=== PATIENT | male | born 1935 | race Caucasian/White ===

== ENCOUNTER 2016-11-11 13:40 | Inpatient (IN) | payer MEDICARE, MEDICAID ==
[~2016-11-11 13:40] MED LIST: Heparin 1,000 UNITS/ML VIAL ONE
[2016-11-11 14:00] LABS: Oxyhemoglobin 95.5 % (94.0-97.0); Sodium 142 mmol/L (135-148)
[2016-11-11 14:01] LABS: Mode NC 2 LPM; Modified Allen's Test POSITIVE; Vent NO
[2016-11-11] MEDS ORDERED: ISOVUE-370 76%-LOCM 1 ML ONE (14:13)
[2016-11-11 14:18] LABS: #Eosinphils 0.1 thou/uL (0.0-0.7); #Lymphocytes 1.7 thou/uL (1.20-3.40); #Monocytes 0.4 thou/uL (0.11-0.59); #Neutrophils 7.2 thou/uL (1.40-6.50); %Basophils 0.3 % (0.0-1.0); %Eosinophils 1.3 % (0.0-10.0); %Lymphocytes 18.3 % (21.0-51.0); %Monocytes 4.2 % (0.0-10.0); Hematocrit 36.8 % (42.0-52.0); Mean Platelet Volume 7.9 fL (7.4-10.4); Red Blood Cell (RBC) Count 3.39 mill/uL (4.70-6.10); White Blood Cell (WBC) Count 9.4 thou/uL (4.8-10.8)
[2016-11-11] MEDS ORDERED: Meropenem 1 GM VIAL ONE (14:27)
[2016-11-11] MEDS ORDERED: Sodium Chloride 0.9% 100 ML ONE (14:27)
[2016-11-11 14:30] LABS: Prothrombin Time 14.9 SEC (12.0-14.7)
[2016-11-11 14:42] LABS: Lactic Acid - Sepsis 1.4 mmol/L (0.5-2.2)
--- NOTE | 2016-11-11 14:53 | RAD ---
SINGLE VIEW OF THE CHEST: Comparison: 11-01-16 History: Shortness of breath, dyspnea. FINDINGS: Single view of the chest shows a normal sized cardiomediastinal silhouette. There is no evidence of consolidation, mass, or pleural effusion. Degenerative changes are seen in the spine. IMPRESSION: No evidence of acute cardiopulmonary disease. POS: [facility]
[2016-11-11 14:59] LABS: ALT (SGPT) Less than 7 U/L (8-55); AST (SGOT) 18 U/L (5-34); Alkaline Phosphatase 85 U/L (40-150); Anion Gap 17 mmol/L (10-20); BUN (Urea Nitrogen) 24 mg/dL (8.4-25.7); Bilirubin, Total 0.9 mg/dL (0.2-1.2); CK (CPK) 65 U/L (30-200); Calc. Creatinine Clearance 0 mL/min (70-130); Calcium 9.1 mg/dL (7.8-10.44); Carbon Dioxide 24 mmol/L (23-31); Chloride 106 mmol/L (98-107); Estimated GFR-MDRD 65; Lipase 8 U/L (8-78); Protein, Total 6.7 g/dL (5.8-8.1)
[2016-11-11 15:14] LABS: Bilirubin Negative (Negative); Blood, Urine Negative (Negative); Glucose, Urine (Dipstick) Negative (Negative); Ketone, Urine Trace mg/dL (Negative); Nitrite Negative (Negative); Protein, Urine (Dipstick) 30 mg/dL (Neg-Trace)
[2016-11-11 15:18] LABS: Bacteria/HPF None Seen HPF (None Seen); Hyaline Casts/LPF 0-3 HYALINE CAST LPF (0-3 Hyaline); RBC/HPF 0-3 HPF (0-3); Squamous Epithelial None Seen HPF (0-3); WBC/HPF 0-3 HPF (0-3)
[2016-11-11] MEDS ORDERED: Furosemide 40 MG/4 ML VIAL ONE (16:31)
--- NOTE | 2016-11-11 16:58 | CT ---
CTA OF THE CHEST WITH CONTRAST: 11/11/16 COMPARISON: None. HISTORY: Shortness of breath. History of dementia. TECHNIQUE: Multiple contiguous axial images are obtained in a CTA of the chest with contrast per pulmonary embo lism protocol. 3D oblique MIP reformats and direct coronal reformats were performed. FINDINGS: Pulmonary arteries are well opacified without filling defects to suggest pulmonary emboli. The heart is normal in size without focal cardiac abnormality. Calcifications are seen in the coronary arteri es and aorta. No hilar or mediastinal lymphadenopathy are seen. There is a small right pleural effusion. No significant left pleural effusion seen. No focal infiltr ates are seen in the lungs. No suspicious pulmonary mass is present. The visualized subdiaphragmatic structures are unremarkable. Degenerative changes are seen in the sp ine. The chest wall soft tissues are unremarkable. IMPRESSION: 1. Small right pleural effusion. 2. No evidence of pulmonary thromboembolism. POS: [facility]
[2016-11-11 17:54] LABS: Troponin I 0.062 ng/mL (< 0.028)
[2016-11-11 19:58] VITALS: BMI 31.7
[2016-11-11 20:29] LABS: Troponin I 0.073 ng/mL (< 0.028)
[2016-11-11] MEDS: Piperacillin/Tazobactam 3.375 GM in Sodium Chloride 0.9% 100 ML IVPB SCH (21:06)
[2016-11-12] MEDS: Piperacillin/Tazobactam 3.375 GM in Sodium Chloride 0.9% 100 ML IVPB SCH ×4 (03:02→14:54)
[2016-11-12] MEDS: Vancomycin HCl 1 GM in Premix Bag 1 BAG IVPB SCH ×2 (03:45→14:54)
[2016-11-12 06:26] LABS: Anion Gap 13 mmol/L (10-20); BUN (Urea Nitrogen) 22 mg/dL (8.4-25.7); Calc. Creatinine Clearance 61 mL/min (70-130); Calcium 9.1 mg/dL (7.8-10.44); Carbon Dioxide 29 mmol/L (23-31); Chloride 103 mmol/L (98-107); Estimated GFR-MDRD 53
--- NOTE | 2016-11-12 07:18 | ULT ---
RIGHT LOWER EXTREMITY VENOUS DOPPLER WITH SPECTRAL ANALYSIS AND COLOR FLOW EVALUATION: Date: 11/11/16 HISTORY: Right lower extremity pain, edema, and redness. FINDINGS/IMPRESSION: Newell scale, color flow, Doppler evaluation, and spectral analysis of the right lower extremity venou s structures is performed with 2D imaging. The right lower extremity common femoral, superficial fem oral, popliteal, posterior tibial, most proximal greater saphenous, and profunda femoral veins are i [place]. There is normal lumen compressibility, flow, and augmentation of the visualized deep venous structur es of the right lower extremity. There is evidence of subcutaneous edema in the right lower extremity. IMPRESSION: 1. No evidence of a DVT in the visualized deep venous structures of the right lower extremity. 2. Subcutaneous edema right lower extremity. POS: [facility]
[2016-11-12] MEDS: Enoxaparin Sodium 40 MG/0.4 ML SYRINGE SC SCH (08:31)
[2016-11-12] MEDS: Furosemide 40 MG/4 ML VIAL SLOW IVP SCH (08:31)
[2016-11-12] MEDS ORDERED: Carvedilol 6.25 MG TAB PO SCH (10:30)
[2016-11-12] MEDS ORDERED: Insulin Detemir 100 UNITS/ML 30 UNITS in Pre-Filled Syringe 1 EACH SC SCH (10:30)
[2016-11-12] MEDS ORDERED: Lisinopril 20 MG TAB PO SCH (10:30)
[2016-11-12] MEDS ORDERED: Gabapentin 300 MG CAP PO SCH (10:30)
--- NOTE | 2016-11-12 11:17 | CON ---
DATE OF CONSULTATION: 11/12/2016 INDICATION FOR CONSULTATION: An 81-year-old patient with shortness of breath and edema. HISTORY OF PRESENT ILLNESS: This 81-year-old patient with dementia had been complaining of lower ex tremity edema, some mild chest discomfort, and shortness of breath. He presented to the emergency r oom. He refused to have an IV placed by the EMS en route. He was found to have, in the emergency r oom, some lower extremity edema with cellulitis, was started on antibiotics, some concern that he ma y have non-ST segment elevation myocardial infarction, cardiac enzymes were indeterminate. He has h ad elevated cardiac enzymes in the past. He does have a history of atrial fibrillation, but at this time appears to be in a junctional rhythm. He had an echocardiogram in 09/2016, which showed a mil d decrease in left ventricular systolic function. He was seen in the hospital at that time by Dr. Kenisha ruiz. It was felt that no further intervention was indicated due to his history of dementia and the patient was stable at that time. At this time, he denies any chest pain or shortness of breath , but does complain of some discomfort in the lower extremities. PAST MEDICAL HISTORY: Significant for dementia, congestive heart failure, history of coronary arter y disease, myocardial infarction with [id number] myocardial infarction. He has had stent plac ement x2, I am uncertain as to which vessels. He has history of diabetes and hypertension. He has had a right knee surgery. He has shoulder surgery x2. He has some history of venous insufficiency. SOCIAL HISTORY: He has no alcohol or tobacco abuse. He has a child, at least one daughter, who is alive and well. He is . FAMILY HISTORY: Noncontributory. MEDICATIONS PRIOR TO ADMISSION: Included lisinopril, Hytrin, gabapentin, omeprazole, Lasix, allopur inol, aspirin, DuoNeb, Coreg, insulin, and Lipitor; in the hospital he has been given Lovenox, IV La six, insulin, Protonix, piperacillin, and vancomycin. ALLERGIES: He is allergic to SULFA. LABORATORY DATA: Shows a white blood cell count of 9.4, hemoglobin 11.7, creatinine 1.3, troponin I on admission was 0.05, the next set was 0.62, and then up to 0.73, MBs are negative. REVIEW OF SYSTEMS: The patient is somewhat demented, but denies chest pain or shortness of breath a t this time. He does complain of some edema and some swelling in the lower extremities with some te nderness. He denied any GI or complaints. Remainder of the 12-point review of systems from what I can ascertain from the patient was unremarkable. PHYSICAL EXAMINATION: GENERAL: Reveals an elderly gentleman. VITAL SIGNS: Blood pressure 147/72, heart rate is 67 and is regular, temperature 99.7, respiratory rate is 18, O2 saturations at 96%. HEENT: Shows the head to be normocephalic and atraumatic. Carotid pulses are present. I cannot he ar any bruits. There is no obvious JVD. CHEST: His chest is actually clear to auscultation. I did not hear rales, rhonchi, or wheezing. CARDIOVASCULAR: Exam reveals a regular rhythm. There are no significant murmurs, heaves, thrills, bruits, or rubs. ABDOMEN: Obese, shows positive bowel sounds. No organomegaly or masses are noted. Femoral pulses are present. EXTREMITIES: Showed 2-3+ lower extremity edema. He has cellulitis of the right lower extremity. H e has tenderness on both lower extremities. I cannot palpate pedal pulses due the tenderness of the lower extremities and feet. NEUROLOGIC: The patient has obvious dementia, but is pleasant at this time and is calm. I did not see any gross focal motor deficits noted. SKIN: Warm and dry. Lower extremities are warm to the touch, more so than the remaining systems. IMAGING: EKG shows a junctional rhythm with a right bundle branch block and left anterior fascicula r block. He did have a CT angiogram, which shows a small right pleural effusion, but no pulmonary e mboli were noted. Chest x-ray showed no acute changes. IMPRESSION: 1. Elderly gentleman with lower extremity edema and cellulitis, which is being treated by antibioti cs. 2. Abnormal cardiac enzymes, which may be due to multitude of reasons, but at this time given his o verall dimension in present situation with cellulitis, he is not a candidate to undergo further inte rvention or evaluation from a cardiac standpoint as far as coronary arteriography and stress testing is not indicated at this time. 3. Some evidence of lower extremity edema, which is also probably some mild component of congestive heart failure. He may have diastolic dysfunction. However, his last echocardiogram in 09/2016 did show a minimal decrease in left ventricular systolic function. I would agree with the IV diuretics on a daily basis at this time. 4. Dementia. This is being dealt with by the primary care service. 5. History of hypertension. This is under reasonable control at this time. 6. History of coronary artery disease. This may need further evaluation, but at this time there is no indication we need to proceed with cardiac catheterization or stress testing. 7. Diabetes. This will be dealt with by the primary care service and he will continue his medicati ons. Thank you very much for asking us to participate in the care of the patient. Dr. Carvajal will res ume his care tomorrow.
[2016-11-12] MEDS: HumaLOG 300 UNITS/3 ML VIAL SC SCH ×2 (13:45→17:26)
[2016-11-12] MEDS: cefTRIAXone\\ROCEPHIN 1 GM in Sodium Chloride 0.9% 100 ML IVPB SCH (14:53)
--- NOTE | 2016-11-12 14:53 | CON ---
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 No reported chest pain, maybe so me dyspnea. No nausea, vomiting, hematemesis, melena or hematochezia. No genitourinary symptoms. Initial findings in the exam showed temperature of 98, pulse 58, respirations 20 and blood pressure 116/40. Pertinent findings included diminished breath sounds at the bases, but no crackles or wheez ing. Heart exam was normal. Abdomen was soft, nontender, not distended and he had edema with eryth maru in the lower extremities. White cell count 7.3, hemoglobin 12 and platelets 139. Potassium 5.2 . Initial evaluation included a non-ST segment elevation DE with acute kidney injury, volume deplet ion, AFib and also there was evidence of cellulitis in the lower extremities. We were asked to eval uate the issue of cellulitis. Currently, Mr. Saunders is somewhat disoriented. He knows where he is. He knew his name, but could not tell me his age or the year or month. He complains of pain particul ar in the right lower extremity on palpation, mild dyspnea. Other 10-point review of systems is as above. PAST MEDICAL HISTORY: Includes type 2 diabetes, hypertension, hyperlipidemia, coronary artery disea se with prior DE with stenting and venous insufficiency with stasis dermatitis. ALLERGIES: SULFA DRUGS with rash. PAST SURGICAL HISTORY: Right knee arthroplasty, left shoulder arthroscopy and coronary intervention s. FAMILY HISTORY: Noncontributory. CURRENT MEDICATIONS: Include aspirin, Coreg, Lovenox, Lasix, Neurontin, insulin, Zestril, Protonix, vancomycin and Zosyn. PHYSICAL EXAMINATION: VITAL SIGNS: T-max 99.7, BP 140/70, pulse 67, respirations 18 and O2 sat 96% on 2 liters. SKIN: Examination shows the area of circumferential erythema more extensive on the right leg, a lit tle bit of that on the left side. The area of involvement includes the distal right leg in a circum ferential fashion, mostly in the anterior segment. This area is quite tender to palpation. No tracy chiae or purpura. The patient has lost all his peripheral IV access. No Montero catheter. No lympha denopathy. Mild periorbital edema. HEENT: Ocular movements are conjugate. Sclerae white. Oral cavity with numerous missing teeth, pa rticularly in the upper maxilla. Oral cavity is moist, otherwise no lesions. NECK: Supple, without jugular venous distention. LUNGS: With symmetric clear breath sounds. CARDIOVASCULAR: S1 and S2 with markedly diminished heart sounds. ABDOMEN: Soft and not distended. Question of bladder distention. EXTREMITIES: No joint inflammatory activity. Pulses are 1+ in dorsalis pedis. There is evidence o f venous insufficiency associated edema. He is able to move extremities on command, but is diffusel y weak. NEUROLOGIC: Plantar responses are flexor. No clonus. He knows his name. He establishes eye conta ct and follows commands, but he did not know the date. LABORATORY AND X-RAY FINDINGS: White cell count was 9.4, hemoglobin 11, MCV 109, platelets 168,000 and 75% neutrophils. INR 1.2. PH of 7.4, pCO2 of 45 and pO2 of 99. Sodium was 142, creatinine 1.0 9 with AST 18, ALT less than 7 and alkaline phosphatase 85. BNP was 319 and albumin 3.7. Urinalysi s with 30 protein. Microbiology: Blood cultures negative from this admission, urine culture negati ve. Imaging studies have negative duplex ultrasound of veins. CT angio with no evidence of pulmona ry embolism, small right pleural effusion. ASSESSMENT: Diabetes type 2, cardiomyopathy ischemic, non-ST segment elevation myocardial infarctio n and possible cellulitis right leg. DISCUSSION: At this time, we would recommend transition to Rocephin, PICC line placement since he h as lost all the IV access. Nurse is having a difficult time finding another peripheral IV access. Check bladder scan to rule out urinary retention. Whenever there is further improvement, transition to oral Keflex for discharge planning. Patient will benefit from compression stockings if he is ab le to tolerate them. In view of the recurrence of cellulitis, we would recommend suppressive Pen VK 250 mg twice daily for one year.
[2016-11-12] MEDS: Gabapentin 300 MG CAP PO SCH ×2 (14:55→21:46)
[2016-11-12] MEDS: Carvedilol 6.25 MG TAB PO SCH (21:45)
[2016-11-12] MEDS: Atorvastatin Calcium 20 MG TAB PO SCH (21:45)
[2016-11-12] MEDS: Terazosin HCl 5 MG CAP PO SCH (21:46)
[2016-11-13 02:26] LABS: Vancomycin, Trough 9.6 ug/mL
[2016-11-13 06:18] LABS: Anion Gap 13 mmol/L (10-20); BUN (Urea Nitrogen) 21 mg/dL (8.4-25.7); Calc. Creatinine Clearance 61 mL/min (70-130); Calcium 8.7 mg/dL (7.8-10.44); Carbon Dioxide 30 mmol/L (23-31); Chloride 101 mmol/L (98-107); Estimated GFR-MDRD 53
[2016-11-13] MEDS: HumaLOG 300 UNITS/3 ML VIAL SC SCH ×3 (08:04→16:49)
[2016-11-13] MEDS: Carvedilol 6.25 MG TAB PO SCH ×2 (09:38→20:51)
[2016-11-13] MEDS: Furosemide 40 MG/4 ML VIAL SLOW IVP SCH (09:41)
[2016-11-13] MEDS: Enoxaparin Sodium 40 MG/0.4 ML SYRINGE SC SCH (09:41)
[2016-11-13] MEDS: Insulin Detemir 100 UNITS/ML 30 UNITS in Pre-Filled Syringe 1 EACH SC SCH (09:42)
[2016-11-13] MEDS: Gabapentin 300 MG CAP PO SCH ×3 (09:42→20:51)
[2016-11-13] MEDS: Lisinopril 20 MG TAB PO SCH (09:42)
[2016-11-13] MEDS ORDERED: Sodium Chloride 0.9% 10 ML ONE (13:53)
[2016-11-13] MEDS: cefTRIAXone\\ROCEPHIN 1 GM in Sodium Chloride 0.9% 100 ML IVPB SCH (13:55)
--- NOTE | 2016-11-13 14:20 | SPC ---
PICC PLACEMENT ULTRASOUND GUIDED VENOUS ACCESS: (Peripherally Inserted Central Catheter) HISTORY: 81-year-old male with cellulitis of the right lower extremity requiring long-term IV antibiotics. TECHNIQUE: Catheter caliber: 5 Grenadian Catheter trim length: 47.5 cm Catheter lumen number: Single Catheter tip location: Right atrium Vein accessed: Left basilic Signed, informed consent was obtained. A tourniquet was applied at the proximal aspect of the arm. The arm was prepared and draped in the usual sterile fashion. A 25 gauge needle was used to apply buffered lidocaine superficially. The vein was punctured with a 21 gauge micropuncture needle under ultrasound guidance. A 0.018 inch guide wire was advanced through the micropuncture needle and int o the vein. Under fluoroscopic guidance, the guide wire was advanced to the right atrium. The PICC (peripherally inserted central catheter) was flushed and trimmed to the appropriate length. The sk in puncture hole was widened with a blade. The micropuncture needle was exchanged over the guide wi re for a 5 Grenadian peel-away dilator sheath. The dilator was exchanged over the guide wire for the P ICC, which was then further advanced under fluoroscopy. The sheath and guide wire were removed. Th e PICC was flushed again and secured in place at the arm. The patient tolerated the procedure well. There was no complication. IMPRESSION: Successful placement of PICC (peripherally inserted central catheter) lizbeth [] POS: [facility]
[2016-11-13] MEDS: Atorvastatin Calcium 20 MG TAB PO SCH (20:51)
[2016-11-13] MEDS: Terazosin HCl 5 MG CAP PO SCH (20:51)
[2016-11-14 06:03] LABS: Anion Gap 10 mmol/L (10-20); BUN (Urea Nitrogen) 27 mg/dL (8.4-25.7); Calc. Creatinine Clearance 58 mL/min (70-130); Calcium 8.6 mg/dL (7.8-10.44); Carbon Dioxide 31 mmol/L (23-31); Chloride 104 mmol/L (98-107); Estimated GFR-MDRD 51
[2016-11-14] MEDS: HumaLOG 300 UNITS/3 ML VIAL SC SCH ×3 (08:00→17:14)
[2016-11-14] MEDS: Carvedilol 3.125 MG TAB PO SCH ×2 (08:21→17:20)
[2016-11-14] MEDS: Enoxaparin Sodium 40 MG/0.4 ML SYRINGE SC SCH (08:21)
[2016-11-14] MEDS: Lisinopril 20 MG TAB PO SCH (08:22)
[2016-11-14] MEDS: Furosemide 40 MG/4 ML VIAL SLOW IVP SCH (08:22)
[2016-11-14] MEDS: Gabapentin 300 MG CAP PO SCH ×3 (08:22→19:44)
[2016-11-14] MEDS: Insulin Detemir 100 UNITS/ML 30 UNITS in Pre-Filled Syringe 1 EACH SC SCH (09:21)
[2016-11-14] MEDS: cefTRIAXone\\ROCEPHIN 1 GM in Sodium Chloride 0.9% 100 ML IVPB SCH (14:15)
--- NOTE | 2016-11-14 18:06 | PDOC.CTH ---
Cardiology Progress Note - Subjective Symptoms improved since admission. No CV complaints today. Eating lunch without complaints. ROS otherwise negative. - Objective Vital Signs Temp Pulse Pulse Pulse Resp BP BP 11/14/16 15:33 97.6 F 64 16 11/14/16 12:00 98.0 F 60 16 11/14/16 10:26 54 L 54 L 136/62 11/14/16 08:22 112/53 L 11/14/16 08:00 98.1 F 66 18 BP BP Pulse Ox Pulse Ox Pulse Ox 11/14/16 15:33 129/62 100 11/14/16 12:00 116/55 L 100 11/14/16 10:26 128/59 L 100 97 11/14/16 08:22 11/14/16 08:00 112/53 L 94 L Weight 213 lb 14.4 oz 11/13/16 11/14/16 11/15/16 06:59 06:59 06:59 Intake Total 1580 1420 Output Total 700 Balance 1580 720 - Physical Examination General/Neuro: NAD Neck: carotid US brisk, no JVD present Lungs: CTA, unlabored respirations Heart: PMI normal, RRR Abdomen: no HSM, NT/ND, soft Extremities: other: (2+ pulses, minimal edema) Other PE findings: Neuro: no focal motor defs - Telemetry Telemetry Rhythm: sinus rhythm - Labs Result Diagrams: 11/11/16 14:05 11/14/16 05:10 Troponin/CKMB CK-MB (CK-2) 1.5 ng/mL (0-6.6) 11/12/16 05:30 Troponin I 0.073 ng/mL (< 0.028) H 11/11/16 19:46 - Assessment/Plan 1. CHF, acute/chronic diastolic: continue gentle diuresis. Monitor renal function and lytes. 2. HTN: controlled. Continue medical management. 3. dementia: stable 4. CAD: stable, asymptomatic.
[2016-11-14] MEDS: Terazosin HCl 5 MG CAP PO SCH (19:45)
[2016-11-14] MEDS: Atorvastatin Calcium 20 MG TAB PO SCH (19:45)
[2016-11-14] MEDS ORDERED: Acetaminophen 325 MG TAB PO PRN (19:48)
[2016-11-15 06:23] LABS: Anion Gap 10 mmol/L (10-20); BUN (Urea Nitrogen) 23 mg/dL (8.4-25.7); Calc. Creatinine Clearance 71 mL/min (70-130); Calcium 8.5 mg/dL (7.8-10.44); Carbon Dioxide 31 mmol/L (23-31); Chloride 103 mmol/L (98-107); Estimated GFR-MDRD 64
[2016-11-15] MEDS: HumaLOG 300 UNITS/3 ML VIAL SC SCH ×3 (08:57→16:56)
[2016-11-15] MEDS: Insulin Detemir 100 UNITS/ML 30 UNITS in Pre-Filled Syringe 1 EACH SC SCH (08:59)
[2016-11-15] MEDS: Gabapentin 300 MG CAP PO SCH ×3 (09:00→20:43)
[2016-11-15] MEDS: Enoxaparin Sodium 40 MG/0.4 ML SYRINGE SC SCH (09:00)
[2016-11-15] MEDS: Furosemide 40 MG/4 ML VIAL SLOW IVP SCH ×2 (09:00→16:56)
[2016-11-15] MEDS: Carvedilol 3.125 MG TAB PO SCH ×2 (09:55→16:57)
[2016-11-15] MEDS: Lisinopril 20 MG TAB PO SCH (09:56)
[2016-11-15] MEDS: cefTRIAXone\\ROCEPHIN 1 GM in Sodium Chloride 0.9% 100 ML IVPB SCH (14:38)
--- NOTE | 2016-11-15 16:01 | PDOC.CTH ---
Cardiology Progress Note - Subjective No complaints today. Tolerating meds, diet, activity in room. No CV symptoms reported. ROS otherwise negative. - Objective Vital Signs Temp Pulse Pulse Pulse Resp BP BP 11/15/16 12:49 97.9 F 60 18 117/78 11/15/16 11:02 55 L 66 120/58 L 11/15/16 10:37 98.2 F 54 L 16 104/52 L 11/15/16 04:52 Pulse Ox Pulse Ox 11/15/16 12:49 100 11/15/16 11:02 90 L 11/15/16 10:37 99 11/15/16 04:52 99 Weight 213 lb 3.2 oz 11/14/16 11/15/16 11/16/16 06:59 06:59 06:59 Intake Total 1420 1400 Output Total 700 Balance 720 1400 - Physical Examination General/Neuro: alert & oriented x3, NAD Neck: carotid US brisk, no JVD present Lungs: CTA, unlabored respirations Heart: PMI normal, RRR Abdomen: no HSM, NT/ND, soft Extremities: + edema B Other PE findings: Neuro: no focal motor defs - Telemetry Telemetry Rhythm: sinus rhythm - Labs Result Diagrams: 11/11/16 14:05 11/15/16 05:19 Troponin/CKMB CK-MB (CK-2) 1.5 ng/mL (0-6.6) 11/12/16 05:30 Troponin I 0.073 ng/mL (< 0.028) H 11/11/16 19:46 - Assessment/Plan 1. CHF, acute/chronic diastolic: continue gentle diuresis. Monitor renal function and lytes. Change lasix to IV today, as po diuresis not adequate over last 24-36 hours. 2. HTN: controlled. Continue medical management. 3. dementia: stable 4. CAD: stable, asymptomatic.
[2016-11-15] MEDS: Atorvastatin Calcium 20 MG TAB PO SCH (20:43)
[2016-11-15] MEDS: Terazosin HCl 5 MG CAP PO SCH (20:44)
[2016-11-15] MEDS ORDERED: FLU VACC TS2017-18 (>65YR) 0.5 ML SYRINGE IM ONE (21:00)
[2016-11-16] MEDS: Furosemide 40 MG/4 ML VIAL SLOW IVP SCH ×2 (00:22→12:06)
[2016-11-16 06:34] LABS: Anion Gap 13 mmol/L (10-20); BUN (Urea Nitrogen) 25 mg/dL (8.4-25.7); Calc. Creatinine Clearance 57 mL/min (70-130); Calcium 8.8 mg/dL (7.8-10.44); Carbon Dioxide 32 mmol/L (23-31); Chloride 99 mmol/L (98-107); Estimated GFR-MDRD 50
[2016-11-16] MEDS ORDERED: Carvedilol 3.125 MG TAB PO SCH (08:00)
[2016-11-16] MEDS ORDERED: Furosemide 40 MG TAB PO SCH (09:00)
[2016-11-16] MEDS: Lisinopril 10 MG TAB PO SCH (11:27)
[2016-11-16] MEDS: Gabapentin 300 MG CAP PO SCH ×3 (11:28→20:24)
[2016-11-16] MEDS: HumaLOG 300 UNITS/3 ML VIAL SC SCH ×3 (11:29→18:15)
[2016-11-16] MEDS: Enoxaparin Sodium 40 MG/0.4 ML SYRINGE SC SCH (11:30)
[2016-11-16] MEDS: Insulin Detemir 100 UNITS/ML 30 UNITS in Pre-Filled Syringe 1 EACH SC SCH (11:31)
[2016-11-16] MEDS ORDERED: FLU VACC TS2017-18 (>65YR) 0.5 ML SYRINGE IM ONE (11:45)
--- NOTE | 2016-11-16 13:19 | PQF ---
CLINICAL DOCUMENTATION IMPROVEMENT CLARIFICATION FORM: ICD-10 Updated PLEASE DO AN ADDENDUM TO THE PROGRESS NOTE WITH ANY DOCUMENTATION UPDATES OR ADDITIONS AND CARRY THROUGH TO DC SUMMARY. THANK YOU. DATE: 11/16/16 ATTN: Dr. Harris Please exercise your independent, professional judgment in responding to the clarification form. Clinical indicators are provided on the bottom of this form for your review Please check appropriate box(s) to clarify if the following diagnosis has been ruled in or ruled out: CHF r/o MI [y ] Ruled in diagnosis [ y ] Continue to treat [ ] Resolved [ ] Ruled out diagnosis [ ] Cannot rule out diagnosis [ ] Other diagnosis [ ] Unable to determine For continuity of documentation, please document condition throughout progress notes and discharge summary. Thank You. CLINICAL INDICATORS - SIGNS / SYMPTOMS / LABS PN 11/11/16 CHF R/O W[place] ID CONSULT 11/12: INITIAL EVALUATION INCLUDED A NON-ST SEGMENT ELEVATION W[place] W/ ACUTE KIDNEY INJURY, VOLUME DEPLETION RISKS: PN 11/11: DM, HTN, CAD S/P [place] S/P STENT. CHF DIASTOLIC DYSFUNCTION. TREATMENT: ED RECORD: ASPIRIN ORAL 324 MG GIVEN ORDER 11/11: LOVENOX 40 MG SC 0900 (This form is maintained as a part of the permanent medical record) 2014 [employer]. All Rights Reserved Marjorie Senior RN, [email or web address] Office: [phone] [facility]
[2016-11-16] MEDS: cefTRIAXone\\ROCEPHIN 1 GM in Sodium Chloride 0.9% 100 ML IVPB SCH (13:21)
[2016-11-16] MEDS: Terazosin HCl 5 MG CAP PO SCH (20:27)
[2016-11-16] MEDS: Atorvastatin Calcium 20 MG TAB PO SCH (20:27)
[2016-11-17] MEDS ORDERED: diphenhydrAMINE HCl 25 MG CAP PO SCH (06:30)
[2016-11-17 07:02] LABS: Anion Gap 12 mmol/L (10-20); BUN (Urea Nitrogen) 23 mg/dL (8.4-25.7); Calc. Creatinine Clearance 73 mL/min (70-130); Carbon Dioxide 32 mmol/L (23-31); Chloride 99 mmol/L (98-107); Estimated GFR-MDRD 65
--- NOTE | 2016-11-17 08:09 | PRG ---
DATE OF SERVICE: 11/16/2016 HISTORY OF PRESENT ILLNESS: Mr. Saunders is doing well. He is seen ambulating in his room. He has no current complaints. He continues to have lower extremity edema, although appears improved. He has no significant shortness of breath. PHYSICAL EXAMINATION: VITAL SIGNS: Blood pressure 109/54, pulse 58, temperature 98.5. LUNGS: Clear to auscultation. CARDIAC: Regular rate and rhythm. ABDOMEN: Soft, nontender, nondistended. EXTREMITIES: 1-2+ pitting edema. PERTINENT LABORATORY DATA: No recent hemoglobin. Creatinine 1.36 with a GFR of 50. IMPRESSION: 1. Acute on chronic diastolic heart failure. 2. Edema. 3. Cellulitis. 4. Dementia. 5. Indeterminate troponin. RECOMMENDATIONS: At this point we will continue current conservative therapy. Given his age and un derlying comorbidities, there is no distinct advantage to proceeding with a more aggressive approach . He is currently on antibiotic therapy for cellulitis and would continue. Would also recommend co ntinuing aspirin in addition to atorvastatin and carvedilol. There is no need for a repeat echo.
[2016-11-17] MEDS: HumaLOG 300 UNITS/3 ML VIAL SC SCH ×3 (10:10→17:45)
[2016-11-17] MEDS: Enoxaparin Sodium 40 MG/0.4 ML SYRINGE SC SCH (10:11)
[2016-11-17] MEDS: Gabapentin 300 MG CAP PO SCH ×3 (10:12→20:30)
[2016-11-17] MEDS: Furosemide 40 MG TAB PO SCH ×2 (10:12→14:34)
[2016-11-17] MEDS: Insulin Detemir 100 UNITS/ML 30 UNITS in Pre-Filled Syringe 1 EACH SC SCH (10:14)
[2016-11-17] MEDS: Lisinopril 10 MG TAB PO SCH (10:34)
[2016-11-17] MEDS: cefTRIAXone\\ROCEPHIN 1 GM in Sodium Chloride 0.9% 100 ML IVPB SCH (14:34)
[2016-11-17] MEDS ORDERED: methylPREDNISolone Sod Succ/PF 125 MG/2 ML VIAL IVP SCH (18:00)
[2016-11-17] MEDS ORDERED: Sodium Chloride 0.9% 10 ML ONE (18:33)
[2016-11-17] MEDS: Atorvastatin Calcium 20 MG TAB PO SCH (20:30)
[2016-11-17] MEDS: Terazosin HCl 5 MG CAP PO SCH (20:30)
[2016-11-18] MEDS: HumaLOG 300 UNITS/3 ML VIAL SC SCH ×3 (08:02→17:42)
[2016-11-18] MEDS: Gabapentin 300 MG CAP PO SCH ×3 (08:03→20:55)
[2016-11-18] MEDS: Enoxaparin Sodium 40 MG/0.4 ML SYRINGE SC SCH (08:03)
[2016-11-18] MEDS: Furosemide 40 MG TAB PO SCH (08:03)
[2016-11-18] MEDS: Lisinopril 10 MG TAB PO SCH (08:04)
--- NOTE | 2016-11-18 08:12 | PDOC.CTH ---
Cardiology Progress Note - Subjective NO comp[laints today. Seen sitting up eating breakfast - Objective Vital Signs Temp Pulse Resp BP BP BP Pulse Ox 11/18/16 08:04 125/68 11/18/16 07:53 98.3 F 102 H 18 125/68 98 11/18/16 04:00 98.2 F 65 20 132/60 98 11/17/16 20:27 98.5 F 58 L 20 153/68 H 99 11/17/16 20:25 98.5 F 58 L 20 99 Weight 215 lb 11.2 oz 11/17/16 11/18/16 11/19/16 06:59 06:59 06:59 Intake Total 1690 500 Output Total 350 250 Balance 1340 250 - Physical Examination General/Neuro: NAD Neck: carotid US brisk, no JVD present Lungs: other: (crackles bilaterally) Heart: PMI normal Abdomen: no HSM, NT/ND, soft Extremities: + edema B - Labs Result Diagrams: 11/11/16 14:05 11/17/16 05:47 Troponin/CKMB CK-MB (CK-2) 1.5 ng/mL (0-6.6) 11/12/16 05:30 Troponin I 0.073 ng/mL (< 0.028) H 11/11/16 19:46 Labs: O/W CBC wnl, O/W BMP wnl - Assessment/Plan 1. Acute on Chronic systolic CHF 2. Cellulitis 3. Dementia= 4. Edema Change laix to IV for today. Pt has gained three lbs in last 24-48 hours. Crackles noted on exam Continue Abx PT Conservative treatment
[2016-11-18] MEDS ORDERED: Furosemide 40 MG/4 ML VIAL IVP SCH ×2 (08:15→12:00)
[2016-11-18 08:29] LABS: Anion Gap 17 mmol/L (10-20); BUN (Urea Nitrogen) 28 mg/dL (8.4-25.7); Calc. Creatinine Clearance 69 mL/min (70-130); Calcium 9.3 mg/dL (7.8-10.44); Carbon Dioxide 30 mmol/L (23-31); Chloride 97 mmol/L (98-107); Estimated GFR-MDRD 61
[2016-11-18] MEDS ORDERED: predniSONE 20 MG TAB PO SCH (09:00)
[2016-11-18] MEDS: Insulin Detemir 100 UNITS/ML 30 UNITS in Pre-Filled Syringe 1 EACH SC SCH (09:34)
[2016-11-18] MEDS: Insulin Regular 300 UNITS/3 ML VIAL SC PRN ×3 (11:38→21:00)
[2016-11-18] MEDS: cefTRIAXone\\ROCEPHIN 1 GM in Sodium Chloride 0.9% 100 ML IVPB SCH (14:36)
[2016-11-18] MEDS: Terazosin HCl 5 MG CAP PO SCH (20:54)
[2016-11-18] MEDS: Atorvastatin Calcium 20 MG TAB PO SCH (20:54)
[2016-11-18] MEDS ORDERED: FLU VACC TS2017-18 (>65YR) 0.5 ML SYRINGE IM ONE (21:00)
[2016-11-19] MEDS: Insulin Regular 300 UNITS/3 ML VIAL SC PRN ×4 (06:37→20:53)
[2016-11-19] MEDS: Lisinopril 10 MG TAB PO SCH (08:12)
[2016-11-19 08:13] LABS: Anion Gap 14 mmol/L (10-20); BUN (Urea Nitrogen) 31 mg/dL (8.4-25.7); Calc. Creatinine Clearance 57 mL/min (70-130); Calcium 9.2 mg/dL (7.8-10.44); Carbon Dioxide 33 mmol/L (23-31); Chloride 97 mmol/L (98-107); Estimated GFR-MDRD 49
[2016-11-19] MEDS: Gabapentin 300 MG CAP PO SCH ×3 (08:13→20:46)
[2016-11-19] MEDS: Enoxaparin Sodium 40 MG/0.4 ML SYRINGE SC SCH (08:13)
[2016-11-19] MEDS: Insulin Detemir 100 UNITS/ML 30 UNITS in Pre-Filled Syringe 1 EACH SC SCH (08:13)
[2016-11-19] MEDS: HumaLOG 300 UNITS/3 ML VIAL SC SCH ×3 (08:19→17:31)
[2016-11-19] MEDS ORDERED: predniSONE 20 MG TAB PO SCH (09:00)
[2016-11-19] MEDS: cefTRIAXone\\ROCEPHIN 1 GM in Sodium Chloride 0.9% 100 ML IVPB SCH (14:23)
--- NOTE | 2016-11-19 14:53 | CON ---
DATE OF CONSULTATION: 11/19/2016 HISTORY OF PRESENT ILLNESS: Mr. Saunders status is unchanged. He states he is feeling well and is back to his baseline. No significant shortness of breath present. OBJECTIVE: VITAL SIGNS: Blood pressure 132/61, Pulse 60, temperature 97.7. He has lost 1 pound overnight. LUNGS: Clear to auscultation. HEART: Regular rate and rhythm. ABDOMEN: Soft, nontender, nondistended. EXTREMITIES: No edema. IMPRESSION: 1. Acute on chronic systolic heart failure. 2. Cellulitis. RECOMMENDATIONS: At this point, Mr. Saunders appears stable. I would change the Lasix to p.o. Continu e antibiotic therapy per Dr. Dimitris Harris. Otherwise, I have no further recommendations.
--- NOTE | 2016-11-19 17:10 | PRG ---
DATE OF SERVICE: 11/19/2016 SUBJECTIVE: Feeling better, little bit dyspneic at rest. No chest pain. No cough. No abdominal p ain, leg is less tender. OBJECTIVE: VITAL SIGNS: Normal except for slight elevation in systolic blood pressure, afebrile. ABDOMEN: Slightly distended. LUNGS: With basilar crackles. EXTREMITIES: Legs have improved with much less erythema in the right leg. LABORATORY DATA: White cell count 9.4, has not been repeated. Creatinine is at 1.38, currently on Rocephin. ASSESSMENT AND DISCUSSION: Type 2 diabetes; cardiomyopathy, which is ischemic; non-ST segment eleva tion myocardial infarction and cellulitis versus stasis dermatitis. At this point, we will transiti on to Keflex oral and then oral Pen VK 250 mg twice daily for 1 year. Compressive dressing or stock ings.
[2016-11-19] MEDS: Terazosin HCl 5 MG CAP PO SCH (20:47)
[2016-11-19] MEDS: Atorvastatin Calcium 20 MG TAB PO SCH (20:47)
[2016-11-19] MEDS: Cephalexin 250 MG CAP PO SCH (20:49)
[2016-11-20] MEDS: Cephalexin 250 MG CAP PO SCH ×2 (05:14→13:41)
[2016-11-20] MEDS ORDERED: predniSONE 20 MG TAB PO SCH (09:00)
[2016-11-20] MEDS: Lisinopril 10 MG TAB PO SCH (09:32)
[2016-11-20] MEDS: Gabapentin 300 MG CAP PO SCH (09:33)
[2016-11-20] MEDS: Enoxaparin Sodium 40 MG/0.4 ML SYRINGE SC SCH (09:34)
[2016-11-20] MEDS: Insulin Detemir 100 UNITS/ML 30 UNITS in Pre-Filled Syringe 1 EACH SC SCH (09:34)
[2016-11-20] MEDS: HumaLOG 300 UNITS/3 ML VIAL SC SCH ×2 (09:42→12:15)
[2016-11-20 12:03] VITALS: BP 140/68
[2016-11-20] MEDS: Insulin Regular 300 UNITS/3 ML VIAL SC PRN (12:15)
[2016-11-20 12:25] VITALS: TEMP 97.8
--- NOTE | 2016-11-23 11:27 | DIS ---
DATE OF ADMISSION: 11/11/2016 DATE OF DISCHARGE: 11/20/2016 ADMITTING DIAGNOSES: 1. Cellulitis, acute, right lower leg. 2. Hypertension, uncontrolled. 3. Diabetes mellitus. 4. Coronary artery disease with history of myocardial infarction and status post stenting. 5. Venous insufficiency with stasis dermatitis, right leg. 6. Hyperlipidemia. 7. History of atrial fibrillation. 8. History of systolic heart failure. FINAL DIAGNOSES: 1. Acute cellulitis, right lower leg, improved. 2. Venous insufficiency with stasis dermatitis, right leg. 3. Hypertension, uncontrolled, improved. 4. Acute on chronic systolic heart failure, improved. 5. Unstable gait and weakness. 6. Coronary artery disease, status post stent placement. 7. Diabetes mellitus, uncontrolled, improved. BRIEF SUMMARY OF HOSPITAL COURSE: Mr. Saunders is an 81-year-old male admitted because of rig ht leg swelling and redness. The patient was found to have cellulitis of the right leg. He also kumari d shortness of breath, found to have acute on chronic systolic heart failure. The patient received IV antibiotics with vancomycin and Zosyn initially. Infectious Disease consult requested, and jamie bull was seen by Dr. Siegel. He felt the patient can be switched to Rocephin and put a PICC line since IV line is out. The patient was started on Rocephin. PICC line was placed and he was also continu ed on IV Lasix 40 for systolic heart failure. Cardiology consult was also done. The patient was se en by Dr. Bush. She felt the patient has systolic heart failure, suggested to continue with diuresi s. In the next few days, his shortness of breath improved. His oxygen is improved. His right leg cellulitis slowly improved with IV antibiotics , and the patient is still very weak, unable to ambulate. He was very unstable. He was started on physical therapy. A vascular ultrasound did not reveal any DVT. The patient was evaluated for residential for continued physical therapy and m anagement. He was accepted in [facility]. The patient is being discharged to [facility]. At the time of discharge, he was stable. His vital signs were stable. Lungs clear. Heart sounds regular . Abdomen is soft, nontender. Bowel sounds present. DISCHARGE MEDICATIONS: Include Lisinopril 10 mg daily, terazosin 5 mg daily, gabapentin 600 t.i.d., omeprazole 20 mg daily, allopurinol 300 mg daily, aspirin 81 mg, DuoNebs q.i.d. p.r.n., Lipitor 20 mg daily, Keflex 500 mg 3 times a day for 2 weeks, Tylenol p.r.n., Humalog insulin 5 units t.i.d., L evemir insulin 30 units daily, Lasix 40 mg daily. The patient will continue physical therapy at the care home.
--- NOTE | 2016-11-23 11:27 | HP ---
REASON FOR ADMISSION/CHIEF COMPLAINT: Shortness of breath. HISTORY OF PRESENT ILLNESS: Mr. Saunders is an 81-year-old male with past medical history of coronary artery disease, status post [place], systolic heart failure, hypertension, diabetes mellitus, wh o came because of shortness of breath. The patient also complained of right leg edema and redness. The patient was brought in because of shortness of breath. He was evaluated in the ER and found to be in acute on chronic systolic heart failure and also found to have a right leg cellulitis. The p atient has orthopnea and paroxysmal nocturnal dyspnea as well. The patient received Lasix IV, vanco mycin and meropenem and aspirin. The patient admitted for further management. PAST MEDICAL HISTORY: 1. Hypertension. 2. Diabetes mellitus. 3. Hyperlipidemia. 4. Venous insufficiency and stasis dermatitis in the right leg. 5. Coronary artery disease, status post stents. 6. Status post myocardial infarction. PAST SURGICAL HISTORY: 1. Status post right knee surgery. 2. Status post left shoulder surgery. 3. Status post stent x2. ALLERGIES: SULFA. CURRENT MEDICATIONS: The patient is on Coreg 6.25 b.i.d., gabapentin 600 three times daily, lisinop ril 20 mg daily, omeprazole 20 mg daily, terazosin 5 mg daily, allopurinol 300 mg daily, Lasix 40 mg daily. FAMILY HISTORY: Nothing contributory. SOCIAL HISTORY: The patient lives with his daughter. No history of smoking. No history of alcohol intake. REVIEW OF SYSTEMS: CARDIOVASCULAR: No chest pain, has shortness of breath. RESPIRATORY: No fever or cough. GASTROINTESTINAL: No nausea, vomiting, abdominal pain. GENITOURINARY: No dysuria or hematuria. MANAGER FUNCTIONAL: No headache, no dizziness. PHYSICAL EXAMINATION: GENERAL: The patient is alert, awake, oriented x3. VITAL SIGNS: Temperature 98, pulse 70, respirations 20, blood pressure 150/80. HEENT: Head is normocephalic, atraumatic. Pupils equal and reactive to light. Nasopharynx is pale and dry. Hard and soft palate, no lesions seen. SKIN: Skin turgor decreased. NECK: Supple. No JVD. LUNGS: Breath sounds diminished bilaterally. Percussion not dull bilaterally. Rales present in britt th bases. CARDIAC: S1, S2 regular. ABDOMEN: Soft, no distention, no tenderness. Normal bowel sounds. RECTAL: Deferred. NEURO: No focal deficits. EXTREMITIES: Right lower leg is markedly swollen. There is erythema, it is warm to touch. LABORATORY AND X-RAY FINDINGS: CBC shows WBC 9.5, hemoglobin 11.7, hematocrit 37, platelets 168. M etabolic panel: Sodium 142, potassium 5, chloride 106, CO2 28, urea nitrogen 24, creatinine 1, gluc ose 79. CK-MB 2.8, troponin I 0.050, BNP was 319. Chest x-ray showed no evidence of acute cardiopulmonary process. CT thorax, CT angio chest, no evid ence of pulmonary embolism. EKG showed normal sinus rhythm, no acute ST-T wave changes seen. ASSESSMENT: 1. Acute cellulitis right lower leg. 2. Acute on chronic systolic heart failure. 3. Hypertension. 4. Diabetes mellitus. 5. Venous insufficiency with stasis dermatitis in the right leg. 6. Coronary artery disease, status post myocardial infarction, status post stent. 7. Unstable gait. PLAN: 1. Vital signs q.4 hours. 2. Activity: As tolerated. 3. Allergies: SULFA. 4. Hep-Lock. 5. Lasix 40 IVP q.12 h. 6. CK-MB and troponin q.8 hours x2. 7. Zosyn 3.375 grams q.6 h. IV piggyback, vancomycin 1 gram IV piggyback q.12 hours. 8. Elevate right lower leg. 9. Continue home medication. 10. Accu-Chek a.c. and at bedtime. 11. Sliding scale mild with regular insulin. 12. Infectious Disease consult. 13. Cardiology consult.
== END 2016-11-20 15:47 | DRG 602 ==
LOC: ERS 13:40 → 2NO 16:26
PROVIDERS: ADMIT Internal Medicine; ATTEND Internal Medicine
PROC: 02H633Z Insertion of Infusion Device into Right Atrium, Percutaneous Approach (ICD-10-PCS; principal; 2016-11-13)
PROC: B2141ZZ Fluoroscopy of Right Heart using Low Osmolar Contrast (ICD-10-PCS; 2016-11-13)
DX: L03.115 Cellulitis of right lower limb (principal); I21.4 Non-ST elevation (NSTEMI) myocardial infarction; I50.33 Acute on chronic diastolic (congestive) heart failure; N17.9 Acute kidney failure, unspecified; E11.42 Type 2 diabetes mellitus with diabetic polyneuropathy; F03.90 Unspecified dementia, unspecified severity, without behavioral disturbance, psychotic disturbance, mood disturbance, and anxiety; I87.2 Venous insufficiency (chronic) (peripheral); Z88.2 Allergy status to sulfonamides; Z79.82 Long term (current) use of aspirin; Z79.4 Long term (current) use of insulin; I25.5 Ischemic cardiomyopathy; I25.10 Atherosclerotic heart disease of native coronary artery without angina pectoris; Z95.5 Presence of coronary angioplasty implant and graft; E66.9 Obesity, unspecified; Z68.31 Body mass index [BMI] 31.0-31.9, adult; I45.10 Unspecified right bundle-branch block; I44.4 Left anterior fascicular block; I11.0 Hypertensive heart disease with heart failure; I48.91 Unspecified atrial fibrillation; I25.2 Old myocardial infarction
CPT/HCPCS: 36415; 36416; 36569; 71010; 71275; 80048; 80053; 80202; 81003; 81015; 82550; 82553; 82805; 83605; 83690; 83880; 84484; 85025; 85379; 85610; 85730; 87040; 87086; 87149; 90471; 90682; 90732; 93005; 93798; 94760; 96365; 96366; 96367; 96375; A4216; C1751; G0008; G0009; G8978-GP-CJ; G8979-GP-CH; G8987-GO-CM; G8988-GO-CK; J0696; J1644; J1650; J1815; J1940; J2185; J2543; J2930; J3370; J7050; J7506; Q2036

== ENCOUNTER 2016-12-18 08:28 | Inpatient (IN) | payer MEDICARE, MEDICAID ==
--- NOTE | 2016-12-18 09:28 | RAD ---
UPRIGHT PORTABLE CHEST 1 VIEW: Date: 12/18/16 HISTORY: 81-year-old male with cough for 3 days. COMPARISON: 11/11/16. FINDINGS: There is rotation to the right. There is some blunting of the right costophrenic angles suggesting s ome right pleural effusion. Heart size is within normal limits. The left lung is clear. IMPRESSION: Moderate right pleural effusion. Stable appearing left chest. No confluent pneumonia. Overall stable from 11/11/16. POS: [facility]
[2016-12-18 09:36] LABS: #Eosinphils 0.3 thou/uL (0.0-0.7); #Lymphocytes 1.6 thou/uL (1.20-3.40); #Monocytes 0.4 thou/uL (0.11-0.59); %Basophils 0.6 % (0.0-1.0); %Eosinophils 3.5 % (0.0-10.0); %Monocytes 5.7 % (0.0-10.0); Hematocrit 37.2 % (42.0-52.0); Mean Platelet Volume 7.7 fL (7.4-10.4); Red Blood Cell (RBC) Count 3.43 mill/uL (4.70-6.10); White Blood Cell (WBC) Count 7.3 thou/uL (4.8-10.8)
[2016-12-18 10:02] LABS: ALT (SGPT) Less than 7 U/L (8-55); AST (SGOT) 15 U/L (5-34); Alkaline Phosphatase 83 U/L (40-150); Anion Gap 18 mmol/L (10-20); BUN (Urea Nitrogen) 37 mg/dL (8.4-25.7); Calc. Creatinine Clearance 0 mL/min (70-130); Carbon Dioxide 25 mmol/L (23-31); Chloride 103 mmol/L (98-107); Estimated GFR-MDRD 43; Globulin 3.5 g/dL (2.4-3.5); Protein, Total 7.3 g/dL (5.8-8.1)
[2016-12-18] MEDS ORDERED: Furosemide 40 MG/4 ML VIAL ONE (14:30)
[2016-12-18 16:06] VITALS: BMI 30.9
[2016-12-18] MEDS ORDERED: Dextrose 50% Abboject 50 ML SYRINGE IVP PRN (18:52)
[2016-12-18] MEDS ORDERED: Insulin Regular 300 UNITS/3 ML VIAL SC PRN (18:52)
[2016-12-18] MEDS ORDERED: Dextrose 5% in Water 1,000 ML IV PRN (18:52)
[2016-12-18] MEDS ORDERED: Donepezil HCl 5 MG TAB PO SCH (21:00)
[2016-12-18] MEDS: Atorvastatin Calcium 20 MG TAB PO SCH (21:22)
[2016-12-18] MEDS: Carvedilol 6.25 MG TAB PO SCH (21:22)
[2016-12-18] MEDS: Cephalexin 250 MG CAP PO SCH (21:23)
[2016-12-18] MEDS: HumaLOG 300 UNITS/3 ML VIAL SC SCH (21:24)
[2016-12-18] MEDS: Gabapentin 300 MG CAP PO SCH (21:27)
[2016-12-19 05:09] LABS: Anion Gap 12 mmol/L (10-20); BUN (Urea Nitrogen) 39 mg/dL (8.4-25.7); Calc. Creatinine Clearance 59 mL/min (70-130); Calcium 8.7 mg/dL (7.8-10.44); Carbon Dioxide 29 mmol/L (23-31); Chloride 104 mmol/L (98-107); Estimated GFR-MDRD 53
[2016-12-19] MEDS: Furosemide 40 MG/4 ML VIAL SLOW IVP SCH ×2 (06:50→19:42)
[2016-12-19] MEDS: HumaLOG 300 UNITS/3 ML VIAL SC SCH ×3 (08:42→19:40)
[2016-12-19] MEDS: Insulin Detemir 100 UNITS/ML 40 UNITS in Pre-Filled Syringe 1 EACH SC SCH (08:42)
[2016-12-19] MEDS: Lisinopril 10 MG TAB PO SCH (08:43)
[2016-12-19] MEDS: Gabapentin 300 MG CAP PO SCH ×2 (08:43→22:05)
[2016-12-19] MEDS: Terazosin HCl 5 MG CAP PO SCH (08:43)
[2016-12-19] MEDS: Potassium Chloride 10 MEQ TAB PO SCH (08:43)
[2016-12-19] MEDS: Carvedilol 6.25 MG TAB PO SCH (08:43)
[2016-12-19] MEDS: Allopurinol 300 MG TAB PO SCH (08:44)
[2016-12-19] MEDS: Cephalexin 250 MG CAP PO SCH ×3 (08:44→22:05)
[2016-12-19] MEDS ORDERED: HumaLOG 300 UNITS/3 ML VIAL SC PRN (11:39)
[2016-12-19] MEDS ORDERED: Metolazone 5 MG TAB PO SCH (11:45)
[2016-12-19] MEDS ORDERED: PROVENTIL INHALER 6.7 G (200 INHALATIONS) INH PRN (14:17)
--- NOTE | 2016-12-19 15:48 | HP ---
REASON AND CHIEF COMPLAINT: Evaluation of leg edema and cough. HISTORY OF PRESENT ILLNESS: Mr. Saunders is an 81-year-old male with past medical history of diabetes, hypertension and venous insufficiency who was brought in because of the cough for 3 days and did not have any fever, nausea, vomiting, no chest pain. EMS was called originally for choking and when they arrived at the scene, he was trying to cough up something. EMS noted him to have wheezing in the lungs and they gave him DuoNeb treatments. In the ER, the patient was evaluated. He did not have any wheezing, his saturation was 96% on room air. He was found to have marked edema on both legs. He has 4+ edema, but did not have any shortness of breath. The patient received a dose of Lasix in the ER. PAST MEDICAL HISTORY: 1. Hypertension. 2. Diabetes mellitus. 3. Hyperlipidemia. 4. Venous insufficiency. 5. History of cellulitis of right leg. 6. Coronary artery disease, status post stents. 7. History of myocardial infarction. PAST SURGICAL HISTORY: 1. Status post knee surgery, right knee surgery. 2. Status post left shoulder surgery. ALLERGIES: SULFA. CURRENT MEDICATIONS: The patient is on Tylenol p.r.n., allopurinol 300 mg daily , aspirin 81 mg daily, Lipitor 20 mg daily, Coreg 6.25 b.i.d., Aricept 5 mg daily, Lasix 40 mg daily, gabapentin 600 b.i.d., lisinopril 10 mg daily, Protonix 40 mg daily, KCl 10 mEq daily and Hytrin 5 mg daily. FAMILY HISTORY: Nothing contributory. SOCIAL HISTORY: Patient lives with his daughter. No history of smoking. No history of alcohol intake. REVIEW OF SYSTEMS: Cardiovascular: No chest pain. No shortness of breath. Respiratory: No fever. Has cough, nonproductive. Gastrointestinal: No nausea or vomiting. No abdominal pain. Genitourinary: No dysuria or hematuria. Central Nervous System: No headache, no dizziness. PHYSICAL EXAMINATION: GENERAL: The patient is alert, awake and oriented x3. VITAL SIGNS: Temperature 98, pulse 62, respirations 20 and blood pressure 120/ 60. HEENT: Head is normocephalic and atraumatic. Pupils are equal and reactive to light. Nasopharynx is pale and dry. Hard and soft palate. No lesions seen. SKIN: Skin turgor decreased. NECK: Supple. No JVD. LUNGS: Breath sounds diminished bilaterally. Percussion not dull bilaterally. No rales, no rhonchi. HEART: S1 and S2 regular. ABDOMEN: Obese. No tenderness. No organomegaly. Bowel sounds present. RECTAL: Deferred. CENTRAL NERVOUS SYSTEM: No focal deficits. EXTREMITIES: On both lower extremities, there is 4+ pitting edema. There is some erythema in the right lower leg, mildly tender , not warm. LABORATORY DATA: CBC shows WBC of 7.3, hemoglobin 11, hematocrit 37 and platelets 201. Metabolic panel: Sodium 141, potassium 4.6, chloride 103, CO2 of 25, urea nitrogen 37, creatinine 1.5 and glucose 252. BNP was 208. CK-MB not done. X-RAY FINDINGS: Chest x-ray shows right pleural effusion, moderate, stable appearing. IMAGING DATA: EKG: Normal sinus rhythm. No acute ST-T wave changes seen. ASSESSMENT: 1. Severe intractable peripheral edema noted in both legs. 2. Right pleural effusion. 3. Venous insufficiency. 4. Hypertension. 5. Diabetes mellitus. 6. Coronary artery disease, status post stents. 7. Hyperlipidemia. 8. History of systolic heart failure. PLAN: 1. Vital signs q.4 hours. 2. Activity: As tolerated. 3. Allergies: SULFA. 4. Hep-Lock. 5. Lasix 40 IVP q.12 hours. 6. Accu-Cheks a.c. and at bedtime. 7. Sliding scale mild with regular insulin. 8. Intake and output. 9. Continue his home medications. SONJA
[2016-12-19] MEDS ORDERED: Insulin Regular 300 UNITS/3 ML VIAL SC SCH (17:00)
--- NOTE | 2016-12-19 18:07 | RAD ---
LEFT HIP TWO VIEW 12/19/16 HISTORY: Hip pain. COMPARISON: None. FINDINGS: No acute fracture. No malalignment. Mild vascular calcifications. Left obturator ring appears to be intact although limited in evaluation due to overlying wires. IMPRESSION: 1. No acute fracture. 2. Mild enthesopathic changes of the greater trochanter. POS: [facility]
[2016-12-19] MEDS: Carvedilol 3.125 MG TAB PO SCH (22:04)
[2016-12-19] MEDS: Atorvastatin Calcium 20 MG TAB PO SCH (22:04)
[2016-12-20 05:12] LABS: Hemoglobin A1c 7.7 % (4.0-6.0)
[2016-12-20] MEDS: Furosemide 40 MG/4 ML VIAL SLOW IVP SCH ×2 (06:32→17:51)
[2016-12-20] MEDS ORDERED: Metolazone 5 MG TAB PO SCH (08:30)
[2016-12-20] MEDS: Insulin Detemir 100 UNITS/ML 40 UNITS in Pre-Filled Syringe 1 EACH SC SCH (08:54)
[2016-12-20] MEDS: Enoxaparin Sodium 40 MG/0.4 ML SYRINGE SC SCH (08:55)
[2016-12-20] MEDS: Cephalexin 250 MG CAP PO SCH ×3 (08:56→21:31)
[2016-12-20] MEDS: Gabapentin 300 MG CAP PO SCH ×2 (08:56→21:31)
[2016-12-20] MEDS: Lisinopril 10 MG TAB PO SCH (08:56)
[2016-12-20] MEDS: Carvedilol 3.125 MG TAB PO SCH ×2 (08:57→21:31)
[2016-12-20] MEDS: Potassium Chloride 10 MEQ TAB PO SCH (08:57)
[2016-12-20] MEDS: Terazosin HCl 5 MG CAP PO SCH (08:57)
[2016-12-20] MEDS: Allopurinol 300 MG TAB PO SCH (08:58)
[2016-12-20] MEDS: HumaLOG 300 UNITS/3 ML VIAL SC SCH ×3 (08:58→17:51)
[2016-12-20] MEDS: Atorvastatin Calcium 20 MG TAB PO SCH (21:30)
[2016-12-21] MEDS: Furosemide 40 MG/4 ML VIAL SLOW IVP SCH ×2 (06:02→18:02)
[2016-12-21 06:07] LABS: Anion Gap 11 mmol/L (10-20); BUN (Urea Nitrogen) 33 mg/dL (8.4-25.7); Calc. Creatinine Clearance 64 mL/min (70-130); Carbon Dioxide 33 mmol/L (23-31); Chloride 101 mmol/L (98-107); Estimated GFR-MDRD 59
[2016-12-21] MEDS: Insulin Detemir 100 UNITS/ML 40 UNITS in Pre-Filled Syringe 1 EACH SC SCH (09:15)
[2016-12-21] MEDS: HumaLOG 300 UNITS/3 ML VIAL SC SCH ×3 (09:15→18:03)
[2016-12-21] MEDS: Lisinopril 10 MG TAB PO SCH (09:16)
[2016-12-21] MEDS: Potassium Chloride 10 MEQ TAB PO SCH (09:16)
[2016-12-21] MEDS: Cephalexin 250 MG CAP PO SCH ×3 (09:16→21:38)
[2016-12-21] MEDS: Terazosin HCl 5 MG CAP PO SCH (09:16)
[2016-12-21] MEDS: Carvedilol 3.125 MG TAB PO SCH ×2 (09:16→21:39)
[2016-12-21] MEDS: Enoxaparin Sodium 40 MG/0.4 ML SYRINGE SC SCH (09:17)
[2016-12-21] MEDS: Allopurinol 300 MG TAB PO SCH (09:17)
[2016-12-21] MEDS: Gabapentin 300 MG CAP PO SCH ×2 (09:17→21:39)
[2016-12-21] MEDS ORDERED: Insulin Detemir 100 UNITS/ML 30 UNITS in Pre-Filled Syringe 1 EACH SC SCH (10:45)
[2016-12-21] MEDS: Atorvastatin Calcium 20 MG TAB PO SCH (21:39)
[2016-12-22] MEDS ORDERED: Metolazone 5 MG TAB PO SCH (08:30)
[2016-12-22] MEDS: Gabapentin 300 MG CAP PO SCH ×2 (10:13→20:17)
[2016-12-22] MEDS: Bumetanide 1 MG TAB PO SCH (10:13)
[2016-12-22] MEDS: Terazosin HCl 5 MG CAP PO SCH (10:13)
[2016-12-22] MEDS: Allopurinol 300 MG TAB PO SCH (10:14)
[2016-12-22] MEDS: Potassium Chloride 10 MEQ TAB PO SCH (10:14)
[2016-12-22] MEDS: Cephalexin 250 MG CAP PO SCH ×3 (10:14→20:16)
[2016-12-22] MEDS: Carvedilol 3.125 MG TAB PO SCH ×2 (10:14→20:17)
[2016-12-22] MEDS: Lisinopril 10 MG TAB PO SCH (10:14)
[2016-12-22] MEDS: Enoxaparin Sodium 40 MG/0.4 ML SYRINGE SC SCH (10:16)
[2016-12-22] MEDS: Insulin Detemir 100 UNITS/ML 30 UNITS in Pre-Filled Syringe 1 EACH SC SCH (10:16)
--- NOTE | 2016-12-22 10:28 | PQF ---
CLINICAL DOCUMENTATION IMPROVEMENT CLARIFICATION FORM: ICD-10 Updated PLEASE DO AN ADDENDUM TO THE PROGRESS NOTE WITH ANY DOCUMENTATION UPDATES OR ADDITIONS AND CARRY THROUGH TO DC SUMMARY. THANK YOU. DATE: 12/22 ATTN: DR. Tonja VASQUEZ Please exercise your independent, professional judgment in responding to the clarification form. Clinical indicators are provided on the bottom of this form for your review Please check appropriate box(s): HISTORY OF SYSTOLIC HEART FAILURE: ACUITY [ ] Acute [ ] Acute on Chronic [y ] Chronic WITH (if appropriate) [ y] Hypertensive Heart Disease [ ] Hypertensive Heart and Kidney Disease [ ] Other diagnosis [ ] Unable to determine For continuity of documentation, please document condition throughout progress notes and discharge summary. Thank You. CLINICAL INDICATORS - SIGNS / SYMPTOMS / LABS ER PHYSICIAN DOCUMENTATION 12/18: PT'S DAUGHTER CONTACTED TO TAKE HIM HOME. SHE IS VERY UNCOMFORTABLE CARING FOR HIM AT HOME AND FEELS HE SHOULD BE ADMITTED FOR DIURESIS. DISCUSSED W/DR. VASQUEZ, WHO AGREES TO OBS ADMISSION FOR DIURESIS FINAL DIAGNOSIS: PERIPERAL EDEMA, ADDITIONAL: R PLEURAL EFFUSION PHYSICIAN H&P DOCUMENTATION 12/19: HISTORY OF PRESENT ILLNESS: HE WAS FOUND TO HAVE MARKED EDEMA ON BOTH LEGS. HE HAS 4+ EDEMA, BUT DID NOT HAVE ANY SOB. THE PT RECEIVED A DOSE OF LASIX IN THE ER. PHYSICAL EXAMINATION: EXTREMITIES: ON BOTH LOWER EXTREMITIES, THERE IS 4+ PITTING EDEMA ASSESSMENT: 1. SEVERE INTRACTABLE PERIPHERAL EDEMA NOTED IN BOTH LEGS; 2. R PLEURAL EFFUSION; 8. HISTORY OF SYSTOLIC HEART FAILURE BNP: 208 CXR: SHOWS RIGHT PLEURAL EFFUSION, MODERATE, STABLE APPEARING RISKS: HISTORY OF SYSTOLIC CHF CAD W/NV & STENTS HTN TREATMENTS: IV LASIX (12/18 - 12/21) PO BUMEX (BEGIN 12/22) TELEMETRY MONITORING (12/18 - PRESENT) THANK YOU! La (This form is maintained as a part of the permanent medical record) 2014 [employer]. All Rights Reserved La Quintana RN, BSN [email or web address] Office: [phone] [facility] CENTERThee
--- NOTE | 2016-12-22 10:42 | PQF ---
CLINICAL DOCUMENTATION IMPROVEMENT CLARIFICATION FORM: ICD-10 Updated PLEASE DO AN ADDENDUM TO THE PROGRESS NOTE WITH ANY DOCUMENTATION UPDATES OR ADDITIONS AND CARRY THROUGH TO DC SUMMARY. THANK YOU. DATE: 12/22 ATTN: DR. Tonja VASQUEZ Please exercise your independent, professional judgment in responding to the clarification form. Clinical indicators are provided on the bottom of this form for your review Please check appropriate box(s): [ ] Acute Renal Failure (ARF) / Acute Kidney Injury (BRENDA) (Please specify associated condition, if applicable) [ ] Other Etiology or underlying conditions related to the diagnosis of ARF/ BRENDA: [ ] Acute on Chronic Renal Failure please specify Stage of CKD (see below) [ y ] CKD without ARF/BRENDA please specify Stage of CKD_111 [ ] Other diagnosis [ ] Unable to determine National Kidney Foundation Guidelines for CKD Staging Stage I Kidney damage with normal or increased GFR GFR > 90 Stage II Kidney damage with mildly decreased GFR GFR 60-89 Stage III Kidney damage with moderately decreased GFR GFR 30-59 Stage IV Kidney damage with severely decreased GFR GFR 16-29 Stage V Kidney failure GFR<15 ESRD End Stage Renal Disease On dialysis For continuity of documentation, please document condition throughout progress notes and discharge summary. Thank You. CLINICAL INDICATORS - SIGNS / SYMPTOMS / LABS BUN: 37 CR: 1.56 GFR: 43 (ADMIT, 12/18) 39 1.30 53 (12/19) 33 1.18 59 (12/21) RISK FACTORS: HTN HX OF SYSTOLIC HF USE OF DAILY LORENA INHIBITORS (LISINOPRIL) USE OF ORAL LASIX DAILY DM II TREATMENT: SERIAL BASEMET LABS THANK YOU! La (This form is maintained as a part of the permanent medical record) 2014 [employer]. All Rights Reserved La Quintana RN, BSN [email or web address] Office: [phone] [facility] CENTERThee
[2016-12-22] MEDS: HumaLOG 300 UNITS/3 ML VIAL SC SCH ×3 (13:15→18:34)
[2016-12-22] MEDS ORDERED: predniSONE 20 MG TAB PO SCH (18:45)
[2016-12-22] MEDS: Atorvastatin Calcium 20 MG TAB PO SCH (20:17)
[2016-12-23 05:49] LABS: Anion Gap 16 mmol/L (10-20); BUN (Urea Nitrogen) 29 mg/dL (8.4-25.7); Calc. Creatinine Clearance 52 mL/min (70-130); Calcium 9.6 mg/dL (7.8-10.44); Carbon Dioxide 28 mmol/L (23-31); Chloride 97 mmol/L (98-107); Estimated GFR-MDRD 48
[2016-12-23] MEDS: Metolazone 5 MG TAB PO SCH (08:03)
[2016-12-23] MEDS: Potassium Chloride 10 MEQ TAB PO SCH (08:03)
[2016-12-23] MEDS: Terazosin HCl 5 MG CAP PO SCH (08:03)
[2016-12-23] MEDS: Lisinopril 10 MG TAB PO SCH (08:03)
[2016-12-23] MEDS: Bumetanide 1 MG TAB PO SCH (08:03)
[2016-12-23] MEDS: Cephalexin 250 MG CAP PO SCH ×3 (08:03→21:07)
[2016-12-23] MEDS: Allopurinol 300 MG TAB PO SCH (08:04)
[2016-12-23] MEDS: Gabapentin 300 MG CAP PO SCH ×2 (08:04→21:06)
[2016-12-23] MEDS: Carvedilol 3.125 MG TAB PO SCH ×2 (08:04→21:07)
[2016-12-23] MEDS: Enoxaparin Sodium 40 MG/0.4 ML SYRINGE SC SCH (08:10)
[2016-12-23] MEDS: Insulin Detemir 100 UNITS/ML 30 UNITS in Pre-Filled Syringe 1 EACH SC SCH (08:25)
[2016-12-23] MEDS: HumaLOG 300 UNITS/3 ML VIAL SC SCH ×3 (08:25→18:07)
[2016-12-23] MEDS ORDERED: predniSONE 20 MG TAB PO SCH (09:00)
[2016-12-23] MEDS ORDERED: Artificial Tears 18 DROP/0.9 ML EA EYE PRN (13:01)
[2016-12-23] MEDS: HumaLOG 300 UNITS/3 ML VIAL SC PRN ×3 (15:05→21:37)
[2016-12-23] MEDS: Atorvastatin Calcium 20 MG TAB PO SCH (21:07)
[2016-12-24 05:26] LABS: #Lymphocytes 1.9 thou/uL (1.20-3.40); #Monocytes 0.7 thou/uL (0.11-0.59); #Neutrophils 10.5 thou/uL (1.40-6.50); %Eosinophils 0.2 % (0.0-10.0); %Lymphocytes 14.4 % (21.0-51.0); %Monocytes 5.6 % (0.0-10.0); Hematocrit 33.2 % (42.0-52.0); Mean Platelet Volume 7.9 fL (7.4-10.4); Red Blood Cell (RBC) Count 3.13 mill/uL (4.70-6.10); White Blood Cell (WBC) Count 13.1 thou/uL (4.8-10.8)
[2016-12-24 05:44] LABS: Anion Gap 12 mmol/L (10-20); BUN (Urea Nitrogen) 33 mg/dL (8.4-25.7); Calc. Creatinine Clearance 56 mL/min (70-130); Calcium 9.3 mg/dL (7.8-10.44); Carbon Dioxide 34 mmol/L (23-31); Chloride 93 mmol/L (98-107); Estimated GFR-MDRD 53
[2016-12-24] MEDS: Gabapentin 300 MG CAP PO SCH ×2 (09:58→19:56)
[2016-12-24] MEDS: predniSONE 20 MG TAB PO SCH (09:58)
[2016-12-24] MEDS: Potassium Chloride 10 MEQ TAB PO SCH (09:58)
[2016-12-24] MEDS: Cephalexin 250 MG CAP PO SCH ×3 (09:58→19:56)
[2016-12-24] MEDS: Allopurinol 300 MG TAB PO SCH (09:58)
[2016-12-24] MEDS: Carvedilol 3.125 MG TAB PO SCH (09:58)
[2016-12-24] MEDS: Insulin Detemir 100 UNITS/ML 40 UNITS in Pre-Filled Syringe 1 EACH SC SCH (09:59)
[2016-12-24] MEDS: Enoxaparin Sodium 40 MG/0.4 ML SYRINGE SC SCH (10:01)
[2016-12-24] MEDS: Metolazone 5 MG TAB PO SCH (10:05)
[2016-12-24] MEDS: Lisinopril 10 MG TAB PO SCH (10:07)
[2016-12-24] MEDS: Terazosin HCl 5 MG CAP PO SCH (11:08)
[2016-12-24] MEDS: Bumetanide 1 MG TAB PO SCH (11:08)
[2016-12-24] MEDS: Acetaminophen 325 MG TAB PO PRN (11:15)
[2016-12-24] MEDS: HumaLOG 300 UNITS/3 ML VIAL SC SCH ×3 (11:16→17:24)
--- NOTE | 2016-12-24 15:16 | CON ---
DATE OF CONSULTATION: 12/24/2016 CARDIOLOGY CONSULTATION REASON FOR CONSULTATION: Bradycardia. HISTORY OF PRESENT ILLNESS: Mr. Saunders is a very pleasant 81-year-old white gentleman, patient of Dr. Donavan Carvajal who comes in for evaluation of swallowing. He was admitted for peripheral edema which is intractable to oral outpatient therapy and right pleural effusion. He has been diuresed and is doing better. He was getting ready to be discharged and was noted that he was getting bradycardic. He was diagnosed with atrial fibrillation earlier this year and he was also noted to be bradycardic and his Coreg was adjusted. On this admission, he has been in the 40s to 50s and he has some episodes where his heart just goes down into 30s briefly. He is asymptomatic from these episodes. PAST MEDICAL HISTORY: 1. Hypertension. 2. Type 2 diabetes. 3. Hyperlipidemia. 4. Venous insufficiency. 5. Cellulitis of right leg. 6. Coronary artery disease, status post stent in the distant past. 7. History of [place] in the past. He had stents placed in the year [address] Moss. PAST SURGICAL HISTORY: 1. Knee surgery on the right. 2. Left shoulder surgery. OUTPATIENT MEDICATIONS: Include, 1. Tylenol p.r.n. 2. Allopurinol 300 mg a day. 3. Aspirin 81 mg daily. 4. Lipitor 20 mg a day. 5. Coreg 6.25 mg b.i.d. 6. Aricept 5 mg a day. 7. Lasix 4 mg a day. 8. Gabapentin 600 mg b.i.d. 9. Lisinopril 10 mg a day. 10. Protonix 40 a day. 11. KCl 10 mEq a day. 12. Hytrin 5 mg a day. FAMILY HISTORY: Noncontributory. ALLERGIES: SULFA DRUGS. SOCIAL HISTORY: No alcohol, tobacco or drugs. REVIEW OF SYSTEMS: Twelve-point review of systems was done and is all negative unless stated in the history of present illness. PHYSICAL EXAMINATION: VITAL SIGNS: Temperature 98.3, pulse 52, respiration rate 18, satting 92% on 2 liters, blood pressure 130/61. GENERAL: Awake and alert. He is oriented x3, in no distress. HEENT: Normocephalic, atraumatic. NECK: Supple. LUNGS: Clear. CARDIOVASCULAR: S1, S2. No S3 or S4, irregularly irregular. Heart rate in the 50s. ABDOMEN: Soft, positive bowel sounds. EXTREMITIES: 1+ edema. SKIN: Warm and dry. There is erythema on the right leg and painful to palpation. LABORATORY WORK: Reviewed. White count of 7.3 up to 13.1 today, hematocrit of 33, hemoglobin 10.4, platelet count of 212. Chemistry today of sodium 135, potassium 3.8, chloride of 93, carbon dioxide of 34, anion gap of 12, BUN of 33 , creatinine 1.29 baseline from 1.5 on admission, calcium 9.3. Telemetry was reviewed, chronic atrial fibrillation, heart rate between 40s and 50s, mostly in the 50s. ASSESSMENT AND PLAN: 1. Chronic atrial fibrillation. 2. Bradycardia. 3. Lower extremity edema. 4. History of coronary disease, stable at this time. 5. History of mildly diminished left ventricular function, thought to be related to his atrial fibrillation. PLAN: 1. We will discontinue carvedilol, he has been only on 3.125 here in the hospital and still having lows. 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 Continue other medications. He is diuresed since he has been here. 2. Aspirin alone for stroke prophylaxis. Thank you for letting us to participate in the care of your patient. Dr. Carvajal, his primary custom garment designer will follow up in the morning. SOJNA
[2016-12-24] MEDS: Atorvastatin Calcium 20 MG TAB PO SCH (19:57)
[2016-12-24] MEDS: HumaLOG 300 UNITS/3 ML VIAL SC PRN (21:02)
[2016-12-25] MEDS: Metolazone 5 MG TAB PO SCH (08:07)
[2016-12-25] MEDS: Potassium Chloride 10 MEQ TAB PO SCH (08:07)
[2016-12-25] MEDS: HumaLOG 300 UNITS/3 ML VIAL SC SCH ×2 (08:07→11:50)
[2016-12-25] MEDS: Gabapentin 300 MG CAP PO SCH (08:08)
[2016-12-25] MEDS: Allopurinol 300 MG TAB PO SCH (08:08)
[2016-12-25] MEDS: Terazosin HCl 5 MG CAP PO SCH (08:08)
[2016-12-25] MEDS: predniSONE 20 MG TAB PO SCH (08:08)
[2016-12-25] MEDS: Cephalexin 250 MG CAP PO SCH ×2 (08:08→14:50)
[2016-12-25] MEDS: Lisinopril 10 MG TAB PO SCH (08:08)
[2016-12-25] MEDS: Enoxaparin Sodium 40 MG/0.4 ML SYRINGE SC SCH (08:09)
[2016-12-25] MEDS: Insulin Detemir 100 UNITS/ML 40 UNITS in Pre-Filled Syringe 1 EACH SC SCH (09:07)
[2016-12-25] MEDS: Bumetanide 1 MG TAB PO SCH (09:08)
[2016-12-25] MEDS: Acetaminophen 325 MG TAB PO PRN (10:22)
[2016-12-25 11:50] VITALS: BP 102/57; TEMP 98
--- NOTE | 2016-12-28 11:53 | DIS ---
ADMITTING DIAGNOSES: 1. Severe intractable peripheral edema noted in both legs. 2. Right pleural effusion. 3. Venous insufficiency. 4. Hypertension. 5. Diabetes mellitus. 6. Coronary artery disease, status post stent. 7. Hyperlipidemia. 8. History of systolic heart failure. FINAL DIAGNOSES: 1. Severe intractable peripheral edema, improved. 2. Right pleural effusion, improved. 3. Venous insufficiency. 4. Episode of chest pain. No evidence of acute myocardial infarction. 5. Hypertension. 6. Diabetes mellitus. 7. Coronary artery disease, status post stent. 8. Unstable gait. 9. Hyperlipidemia. 10. Sinus bradycardia due to Coreg, improved. BRIEF SUMMARY OF HOSPITAL COURSE: Mr. Saunders is an 81-year-old male admitted because of mar ked edema of both lower legs. The patient was getting Lasix without improvement. He was started on IV Lasix and later on Zaroxolyn was added after which his edema gradually improved. The patient lo st about 11 pounds during the hospital stay and both leg edema almost resolved. He did have an epis ode of chest pain while in the hospital. EKG did not show any acute changes. Serial cardiac enzyme s were normal. A cardiology consult was done. The patient was seen by Dr. Wright. He felt the pat bradford has atypical chest pain and chronic atrial fibrillation with controlled heart rate. He suggest ed to continue Coreg completely. The patient was monitored and started on physical therapy. He was able to ambulate with Physical Therapy with a walker. In view of improvement, the patient was disc harged. At the time of discharge, he was stable. His vital signs were stable. Lungs clear. Hear t sounds regular. Abdomen soft, nontender. Bowel sounds present. DISCHARGE MEDICATIONS: Lisinopril 10 mg daily, Hytrin 5 mg daily, gabapentin 600 b.i.d., omeprazole 20 daily, allopurinol 300 mg daily, aspirin 81 mg daily, Tylenol p.r.n., Humalog insulin 5 units t. i.d., Levemir insulin 40 units daily, KCl 10 mEq daily, Lasix was discontinued, Lipitor 20 mg daily, Keflex 500 t.i.d. for 7 days, KCl 10 mEq daily, also given Bumex 2 mg daily. The patient will elevate his legs and he will continue his home health physical therapy. He will co me for followup in 2 weeks.
--- NOTE | 2017-01-03 14:40 | EKG ---
Test Reason : C/O CHEST PAIN Blood Pressure : / mmHG Vent. Rate : 046 BPM Atrial Rate : 060 BPM P-R Int : 000 ms QRS Dur : 150 ms QT Int : 498 ms P-R-T Axes : 000 -59 -72 degrees QTc Int : 435 ms Atrial fibrillation with slow ventricular response Right bundle branch block Left anterior fascicular block Bifascicular block Septal infarct (cited on or before 11-OCT-2016) T wave abnormality, consider lateral ischemia or digitalis effect Abnormal ECG When compared with ECG of 11-NOV-2016 14:27, Atrial fibrillation has replaced Junctional rhythm QRS duration has increased Inverted T waves have replaced nonspecific T wave abnormality in Lateral leads Confirmed by LIZ RUBIO (2) on 01/03/2017 2:40:14 PM Referred By: PEDRO Confirmed By:LIZ RUBIO
== END 2016-12-25 16:21 | disposition home health service (06) | DRG 300 ==
LOC: ERS 08:28 → 2SW 13:13 → OBSVTOIN 12-19 11:20 → 2NO 12-19 16:02
PROVIDERS: ADMIT Internal Medicine; ATTEND Internal Medicine
DX: I87.2 Venous insufficiency (chronic) (peripheral) (principal); I13.0 Hypertensive heart and chronic kidney disease with heart failure and stage 1 through stage 4 chronic kidney disease, or unspecified chronic kidney disease; I50.22 Chronic systolic (congestive) heart failure; E11.22 Type 2 diabetes mellitus with diabetic chronic kidney disease; I48.2 Chronic atrial fibrillation; E11.649 Type 2 diabetes mellitus with hypoglycemia without coma; I25.10 Atherosclerotic heart disease of native coronary artery without angina pectoris; R00.1 Bradycardia, unspecified; Z95.5 Presence of coronary angioplasty implant and graft; I25.2 Old myocardial infarction; N18.3 Chronic kidney disease, stage 3 (moderate)
CPT/HCPCS: 36415; 36416; 71010; 80048; 80053; 83036; 83880; 85025; 93005; 93010; 93798; 96374; G8978-GP-CM; G8979-GP-CK; J1650; J1815; J1940; J7506

== ENCOUNTER 2017-03-17 21:37 | Inpatient (IN) | payer MEDICAID, MEDICARE ==
[2017-03-17 22:06] LABS: Hemoglobin 13.7 g/dL (14.0-18.0); Mean Corpuscular HGB CONC 34.3 g/dL (32.0-36.0); Mean Corpuscular Hemoglobin 33.6 pg (27.0-31.0); Mean Corpuscular Volume 98.1 fl (80.0-94.0); Mean Platelet Volume 8.9 fL (7.4-10.4); Platelet Count 237 thou/uL (130-400); RBC Distribution Width 14.6 % (11.5-14.5); Red Blood Cell (RBC) Count 4.06 mill/uL (4.70-6.10)
[2017-03-17] MEDS ORDERED: Norepinephrine 4 MG/4 ML VIAL ONE ×2 (22:10→22:54)
[2017-03-17 22:20] LABS: Band 7 % (5-11); Lymphocytes 2 % (21-51); MDiff Complete? YES; Monocytes 3 % (0-10); Neutrophil 88 % (42-75); PLT Morphology Comment Appears Adequate
[2017-03-17 22:25] LABS: Actual Bicarbonate (HCO3a) 13.8 mEq/L (22-26); Base Excess (BEa) 14.1 mEq/L (0 (+/-) 2.5); CO2 Tension 39.3 mmHg (35.0-45.0); Hemoglobin (Hb) 11.4 g/dL (14.0-18.0); O2 Tension (PaO2) 248.9 mmHg (80.0-100.0); pH, Arterial 7.16 (7.35-7.45)
[2017-03-17 22:26] LABS: Analyzer IN Cardio ER; Calcium, Ionized 0.8 mmol/L (1.12-1.30); Puncture Site RBA
[2017-03-17 22:27] LABS: ALV-art Gradient 405.975 (0-20)
[2017-03-17 22:46] LABS: ALT (SGPT) Less than 7 U/L (8-55); AST (SGOT) 13 U/L (5-34); Albumin 3.7 g/dL (3.4-4.8); Alkaline Phosphatase 112 U/L (40-150); Anion Gap 36 mmol/L (10-20); Bilirubin, Total 0.8 mg/dL (0.2-1.2); CK (CPK) 546 U/L (30-200); Calc. Creatinine Clearance 0 mL/min (70-130); Calcium 8.1 mg/dL (7.8-10.44); Carbon Dioxide 14 mmol/L (23-31); Chloride 78 mmol/L (98-107); Estimated GFR-MDRD 4; Glucose 448 mg/dL (83-110); Potassium 6.3 mmol/L (3.5-5.1); Protein, Total 7.7 g/dL (5.8-8.1); Sodium 122 mmol/L (136-145)
--- NOTE | 2017-03-17 22:47 | RAD ---
PORTABLE CHEST: 03/17/17 HISTORY: Hypotension. COMPARISON: 12/18/16 study. Heart size is within normal limits. There are atherosclerotic changes of the aorta. The lungs are eliu ar of infiltrates. IMPRESSION: No active intrathoracic disease. POS: [facility]
[2017-03-17 22:52] LABS: Troponin I 0.097 ng/mL (< 0.028)
[2017-03-17 22:54] LABS: CKMB 15.6 ng/mL (0-6.6)
[2017-03-17 22:58] LABS: BUN (Urea Nitrogen) 188 mg/dL (8.4-25.7)
[2017-03-17] MEDS ORDERED: Calcium Chloride 1 GM/10 ML Abboject SYRINGE ONE (23:24)
[2017-03-17] MEDS ORDERED: Insulin Regular 300 UNITS/3 ML VIAL ONE (23:24)
[2017-03-17] MEDS ORDERED: Sodium Bicarb 50 MEQ/50 ML Abboject 8.4% SYRINGE ONE (23:24)
[2017-03-17] MEDS ORDERED: Albuterol Sulfate 2.5 mg/3 ml Neb ONE (23:31)
[2017-03-17] MEDS ORDERED: Piperacillin/Tazobactam 3.375 GM in Sodium Chloride 0.9% 100 ML IVPB SCH (23:45)
[2017-03-18] MEDS ORDERED: Sodium Bicarbonate 150 MEQ in Dextrose 5% in Water 1,000 ML IV SCH ×2 (02:30)
[2017-03-18] MEDS ORDERED: Norepinephrine 8 MG in Sodium Chloride 0.9% 250 ML 250 ML IVPB PRN ×2 (02:58→03:11)
[2017-03-18 03:08] LABS: Lactic Acid 5.2 mmol/L (0.5-2.2)
[2017-03-18] MEDS ORDERED: Acetaminophen 325 MG Suppository PR PRN (03:11)
[2017-03-18] MEDS ORDERED: Ondansetron HCl/PF 4 MG/2 ML Vial IVP PRN (03:11)
[2017-03-18] MEDS ORDERED: Sodium Chloride 0.9% 1,000 ML IV SCH (03:11)
[2017-03-18] MEDS ORDERED: Mag-Al 1200 mg/1200 mg/30 ML UDCUP PO PRN (03:11)
[2017-03-18] MEDS ORDERED: CCU Electrolyte Replacement 1 EACH IVPB ONE (03:11)
[2017-03-18] MEDS ORDERED: Acetaminophen 325 MG/10.15 ML UDCUP PO PRN (03:11)
[2017-03-18] MEDS ORDERED: Bisacodyl 10 MG SUPP PR PRN (03:11)
[2017-03-18] MEDS ORDERED: Milk Of Magnesia 30 ML UDCUP PO PRN (03:11)
[2017-03-18 03:29] VITALS: BMI 25.7
[2017-03-18 03:29] LABS: Magnesium 1.8 mg/dL (1.6-2.6)
[2017-03-18] MEDS ORDERED: Sodium Bicarbonate 75 MEQ in Sodium Chloride 0.45% 1,000 ML IV SCH ×2 (03:30→06:30)
[2017-03-18] MEDS ORDERED: Insulin Regular 300 UNITS/3 ML VIAL ONE (03:31)
[2017-03-18 03:37] LABS: Phosphorus 13.6 mg/dL (2.3-4.7)
[2017-03-18] MEDS ORDERED: Potassium Chloride 20 MEQ TAB PO PRN (03:37)
[2017-03-18] MEDS ORDERED: Magnesium 2 GM/NS 0.9% 100 ML 2 GM in Premix Bag 1 BAG IVPB PRN (03:37)
[2017-03-18] MEDS ORDERED: Potassium Chloride 40 MEQ in Premix Bag 1 BAG IVPB PRN (03:37)
[2017-03-18] MEDS ORDERED: Potassium Chloride 40 MEQ in Sodium Chloride 0.9% 250 ML 250 ML IVPB PRN (03:37)
[2017-03-18] MEDS ORDERED: Potassium Phosphate 12 MMOL in Sodium Chloride 0.9% 250 ML 250 ML IV PRN (03:37)
[2017-03-18] MEDS ORDERED: Potassium Phosphate 15 MMOL in Sodium Chloride 0.9% 250 ML 250 ML IV PRN (03:37)
[2017-03-18] MEDS ORDERED: Magnesium Oxide 400 MG TAB PO PRN ×2 (03:37)
[2017-03-18] MEDS ORDERED: Potassium Phosphate 9 MMOL in Sodium Chloride 0.9% 100 ML IVPB PRN (03:37)
[2017-03-18] MEDS ORDERED: CCU ELECTROLYTE REPLACEMENT PROTOCOL FS PRN (03:37)
[2017-03-18] MEDS ORDERED: DOBUTamine 500 mg/250 ml 250 ML IVPB SCH (03:45)
[2017-03-18] MEDS ORDERED: Hydrocortisone Sod Succ/PF 50 MG in Sodium Chloride 0.9% 50 ML IVPB SCH (03:45)
[2017-03-18] MEDS ORDERED: Pantoprazole 40 MG VIAL IVP SCH (04:00)
[2017-03-18] MEDS ORDERED: Hydrocortisone Sod Succ/PF 100 mg/2 ml Vial IVP SCH (04:15)
[2017-03-18] MEDS ORDERED: DOBUTAMINE IN DEXTROSE 5 % 250 MG in Premix Bag 1 BAG IV SCH ×2 (04:15)
[2017-03-18] MEDS ORDERED: Vancomycin HCl 1 GM in Premix Bag 1 BAG IVPB SCH ×3 (04:30→09:00)
[2017-03-18] MEDS ORDERED: Vancomycin HCl 1.25 GM in Sodium Chloride 0.9% 250 ML 250 ML IVPB SCH (04:30)
[2017-03-18] MEDS ORDERED: HOLD VANCOMYCIN FOR LEVEL >20 FS SCH (04:30)
[2017-03-18] MEDS ORDERED: Vancomycin HCl 500 MG in Sodium Chloride 0.9% 100 ML IVPB SCH (04:30)
[2017-03-18] MEDS ORDERED: Vancomycin HCl 750 MG in Sodium Chloride 0.9% 250 ML 250 ML IVPB SCH (04:30)
--- NOTE | 2017-03-18 04:32 | HP ---
PRIMARY CARE PHYSICIAN: Out of town physician, Dr. Cira Gallo, [place], [place]. Please note that they do not see Dr. Harris anymore. CHIEF COMPLAINT: Unresponsiveness. HISTORY OF PRESENT ILLNESS: Mr. Saunders is an 82-year-old male with past medical history of coronary artery disease, hypertension, and dyslipidemia who was brought in from the correction with the above-mentioned complaints. History is mainly obtained by discussion with the emergency room physician and record review. The patient is currently obtunded and there is no family at bedside to provide any more history. According to the ER physician, the patient was found down by the daughter at the correction. He was last seen by the daughter 5 days ago, awake, alert and oriented x4. Apparently he is on hospice at the correction for some reason. EMS was called to the correction and he was found to be significantly hypoxic with oxygen saturation of 56%. He was brought in on a facemask to the emergency room in the obtunded state. Upon presentation his vital signs included a blood pressure of 116/80 with a pulse of 86, and breathing 20 times a minute, but his blood pressure dropped critically low, as low as 55/33. His core temperature was low at 93.2. Her oxygen saturation was 95% and he was started on the BiPAP machine. In addition to being hypotensive and hypothermic he has multiple electrolyte abnormalities on examination including severe anion gap metabolic acidosis, hyperkalemia with a potassium of 6.3, hyponatremia with a sodium of 122 and uremia with a BUN of 188, creatinine of 10.99 and an estimated GFR of 4. His blood sugar is more than 400 and his lactic acid is elevated to 4.5. He has elevated CK-MB and cardiac enzymes in the form of troponin of 0.097. He also has evidence of severe sepsis with WBCs elevated to 23 with 88% neutrophils. His ABG shows severe acidosis with a pH of 7.16, but normal pCO2 at 39. Upon examination per the ER room physician, he was found to have dark stools in the briefs which were Hemoccult positive. No other history is obtainable at this time and based on these findings, a presumptive diagnosis of severe septic shock with acute renal insufficiency and uremia has been made. The patient has received broad spectrum IV antibiotics and IV fluids in the emergency room without any benefit. He was eventually started on Levophed for persistent hypotension and he has minimally responded to it. He still has not made any urine despite almost 3 liters of fluid and Levophed. Emergency room physician has discussed his care with both of his daughters and at this time they want to make him DNR and DNI, but want to pursue aggressive care short of that. At this time, hospice has been revoked. He is now being admitted to the Critical Care Unit in a guarded state. PAST MEDICAL HISTORY: 1. Coronary artery disease. 2. Diabetes mellitus type 2. 3. Hypertension. 4. Dyslipidemia. 5. Chronic venous insufficiency. 6. Combined systolic and diastolic congestive heart failure, chronic. 7. Chronic kidney disease, stage 3. 8. Atrial fibrillation, not on any chronic anticoagulation. PAST SURGICAL HISTORY: 1. Status post knee surgery. 2. Status post left shoulder surgery. ALLERGIES: SULFONAMIDES. MEDICATIONS: As per the correction include Imodium as needed, lisinopril 5 mg b.i.d., morphine sulfate solution 0.5 gram every 2 hours as needed, Mucinex tablet b.i.d., omeprazole 20 mg daily, promethazine as needed, miconazole powder as needed, Aldactone 25 mg at bedtime, albuterol inhaler as needed, Aleve as needed, Lor as needed, allopurinol 300 mg daily, aspirin 81 mg daily, bumetanide 2 mg b.i.d., Dulcolax as needed, gabapentin 600 mg 3 times a day, hydrochlorothiazide 12.5 mg daily, Terazosin 5 mg daily. SOCIAL HISTORY: The patient is currently a resident at [facility]. FAMILY HISTORY: Type 2 diabetes mellitus. REVIEW OF SYSTEMS: Unobtainable due to obtundation. LABORATORY: CBC shows WBCs 23, 88% neutrophils, hemoglobin 13.7, hematocrit 39.8, platelet count of 237. ABG with pH of 7.16, pCO2 of 39, pO2 248. Serum chemistries show sodium 122, potassium 6.3, chloride 78, bicarbonate 14, anion gap 36, BUN 188, creatinine 10.99, glucose 448. Lactic acid initially 4.2 with repeat lactic acid of 5.2. Creatinine kinase 546, CK-MB 15.6, troponin 0.097. BNP of 147. Chest x-ray by my review does not have any evidence of pleural effusion, edema or infiltrate. CT scan of the brain is done, the results are pending at this time. Twelve lead EKG by my review shows atrial fibrillation with controlled ventricular rate at 82 beats per minute with complete right bundle branch block. PHYSICAL EXAMINATION: VITAL SIGNS: Vital signs upon presentation to our emergency room include blood pressure 116/80 with a pulse of 86, saturations 95% on CPAP, respirations 20 with temperature of 93.2. Since then, his blood pressure has been dwindling and the most recent blood pressure recorded is 75/33 about 2 hours ago prior to this dictation on Levophed. GENERAL: He is pale and unresponsive. BiPAP mask is on. HEENT: Head appears normocephalic and atraumatic. Pupils are sluggishly reactive. Nondilated. Mucous membrane appears severely dry. No oropharyngeal exudate, but the exam is difficult with the BiPAP mask. NECK: Supple without any JVD or bruit. CHEST: Does not have any wheezes or crackles. CARDIOVASCULAR: Rate and rhythm is regular without any significant murmurs. ABDOMEN: Soft, nondistended, positive bowel sounds. EXTREMITIES: Free of any cyanosis, clubbing, or edema. NEUROLOGIC: Cannot be obtained as the patient is completely unresponsive. There is no response to Babinski sign. He does not respond to pain either. SKIN: Free of any rashes, feels warm and dry. PSYCHIATRIC: Unavailable due to obtundation. IMPRESSION AND PLAN: 1. Severe sepsis with septic shock and acute organ failure. The patient is generously resuscitated with IV fluids. We will continue the pressor support at this time and adjust as needed. He will be admitted to the Critical Care Unit. A Trialysis catheter has been placed by the ER physician. The patient remains a DNR and DNI as discussed among the ER physician, Dr. Caraballo and the patient's daughter, Ms. Lopez. This will further be confirmed in the morning. Blood cultures and urine cultures have been obtained. We will continue broad spectrum IV antibiotics at this time in the form of vancomycin, cefepime and levofloxacin. No clear source of the sepsis is apparent at this time. We will also try to obtain a respiratory viral panel for PCR at this time. Monitor electrolytes closely. The patient's condition remains guarded at this time. We will consult Infectious Disease specialist, Dr. Siegel, for further recommendations regarding the antibiotics. We will also consult Pulmonary Critical Care Medicine to follow along as the patient is being admitted to Critical Care Unit. 2. Severe high anion gap metabolic acidosis. This is likely secondary to acute renal insufficiency. He has been started on bicarbonate drip and plan is for him to undergo dialysis after Nephrology consultation shortly. 3. Acute renal failure with uremia. The patient has been seen by Nephrology, Dr. Rivas, along with me. He is being started on emergent dialysis. A Trialysis catheter has been placed. We will monitor electrolytes carefully. Avoid any nephrotoxic medications at this time. The patient was on NSAIDs as well as multiple diuretics contributing to the renal failure. At this time we will hold all of them for all of those reasons. 4. Hyperkalemia. The patient has received calcium and insulin in the emergency room. We will repeat the labs on a regular basis. He is being started on emergent dialysis as per the daughter's request for now. 5. Hyponatremia, has extreme dehydration. The patient has resuscitated first with bicarbonate drip and later he will be started on normal saline order as per the Nephrology recommendations. 6. Hyperglycemia. The patient will be started on a bicarbonate drip. Most likely he might be in diabetic ketoacidosis as well. Urinalysis was not obtainable as he is anuric and urine ketones cannot be obtained. 7. Lactic acidosis secondary to severe sepsis. 8. Mild rhabdomyolysis, likely due to critical illness myopathy. Continue IV fluid resuscitation. 9. Elevated cardiac enzymes. He does have history of coronary artery disease and acute coronary syndrome cannot be ruled out. Unfortunately, he also a questionable gastrointestinal bleed and is not a candidate for anticoagulation at this time. We will also avoid any aspirin given the possibility of gastrointestinal bleed. We will continue to trend serial cardiac enzymes. Management is rather supportive at this time. Most likely the elevated cardiac enzymes is because of demand ischemia from severe sepsis and septic shock. 10. Possible gastrointestinal bleed. The patient's occult blood testing has been positive in the emergency room. We will start him on b.i.d. proton pump inhibitor. At this time, he is not in any shape to undergo any invasive testing. This will be discussed with his daughters in the morning as to how aggressive they want him to be. Meanwhile, will continue to monitor serial H&H which most likely will drop after adequate fluid resuscitation. We will consult Gastroenterology if the patient survives and the daughters are desirous of more aggressive approach. 11. Deep venous thrombosis and gastrointestinal prophylaxis in the form of proton pump inhibitor twice a day and SCDs. We will avoid any pharmacological deep venous thrombosis prophylaxis given the possibility of gastrointestinal bleed. 12. CODE STATUS: Do not resuscitate and do not intubate at this time. This will further need to be clarified. We will consult Palliative Care team for same. DISPOSITION: Mr. Saunders is being admitted after the daughters have revoked hospice for severe sepsis with septic shock and end-organ damage with acute renal failure and uremia. His prognosis is rather guarded at this time and that would not be unexpected. His estimated length of stay in the hospital is at least 3-4 midnights or more. It depends upon his clinical course. Total Critical care time spend on care ,including face to face is 40 minutes. MTDD
[2017-03-18] MEDS ORDERED: Cefepime 2 GM in Sodium Chloride 0.9% 100 ML IVPB SCH (05:00)
--- NOTE | 2017-03-18 05:18 | CON ---
DATE OF CONSULTATION: 03/18/2017 CONSULTING PHYSICIAN: Dr. Rob Plasencia REQUESTING PHYSICIAN: Dr. Baxter and the ER physician. REASON FOR CONSULTATION: Severe hyperkalemia with severe metabolic acidosis and acute kidney injury. IMPRESSION: 1. Acute kidney injury. This is likely hemodynamically mediated in the context of hypotension and i ntravascular depletion. 2. Metabolic acidosis related to problem #1. 3. Severe hyperkalemia due to all the problems listed above including the shift of potassium due to severe metabolic acidosis. 4. Hyponatremia in the context of intravascular depletion and severe hyperglycemia. PLAN: 1. Hemodynamic support with IV fluid resuscitation, preferably with a bicarbonate based infusion. 2. Emergent hemodialysis to address the severe hyperkalemia and severe metabolic acidosis. This mod ality of treatment could prove challenging given the labile hemodynamics of this patient. I will mod bruno the dialysis prescription to accommodate the labile hemodynamics. 3. Renally dose all medications and avoid potentially nephrotoxic agents. 4. Further management to be dependent on the clinical course. HISTORY OF PRESENT ILLNESS: History is that of an 82-year-old gentleman who was brought in with alte red mental status, severely hypotensive. I could not get any history from this patient as the patien t is barely responsive. Clinical evaluation revealed severely elevated potassium above 6, severe met abolic acidosis with pH of 7.16 and evidence of severe acute kidney injury. Given the above findings , the decision was taken to involve Renal in the management of this case. PAST MEDICAL HISTORY: According to records include hypertension, diabetes mellitus, dyslipidemia, ve nous insufficiency, coronary artery disease status post stents. ALLERGIES: SULFA. MEDICATIONS: According to records have been reviewed which include lisinopril and diuretics. FAMILY HISTORY: Could not be obtained. SOCIAL HISTORY: Could not be obtained. REVIEW OF SYSTEMS: Could not be done given the clinical status of this patient. LABORATORY INVESTIGATION: Showed a pH of 7.16. Chemistry: Sodium 122, potassium 6.3, bicarbonate o f 14, BUN 188 with a creatinine of 10.99. CBC showed a white count of 23,000, hemoglobin 13.7. PHYSICAL EXAMINATION: GENERAL: The patient was noted to be virtually somnolent. VITAL SIGNS: Blood pressure of systolic in the 70s. HEENT: Examination revealed a face mask with dry oral mucosa. Neck was supple. CARDIOVASCULAR SYSTEM: First and second heart sounds were heard. RESPIRATORY SYSTEM: Reviewed a lot of transmitted sounds. DIGESTIVE SYSTEM: Revealed a benign abdomen with positive bowel sounds. EXTREMITIES: Showed no peripheral edema. SKIN: Revealed a dry, wrinkled skin. NEUROLOGIC: The patient is barely responsive. SUMMARY: An 82-year-old gentleman brought in hypotensive, noted with the above findings in the debra xt of acute kidney injury. Thank you for this consultation. We will follow with you. The prognosis of this patient is very poor.
[2017-03-18] MEDS ORDERED: Norepinephrine 16 MG in Sodium Chloride 0.9% 250 ML 250 ML IVPB PRN (05:57)
[2017-03-18 06:36] LABS: HBSAg Index 0.27 S/CO (0-0.99); Hep B Surf Ag Non-Reactive S/CO (NonReactive)
--- NOTE | 2017-03-18 07:46 | CT ---
PRELIMINARY REPORT/[facility]/EMERGENCY AFTER HOURS PROCEDURE: EXAM: CT Head Without Intravenous Contrast CLINICAL HISTORY: 82 years old, male; Signs and symptoms; Altered mental status/memory loss; Patient HX: 82yo m comes f rom [facility] hosp[facility] with AMS. Daughter last saw patient 5 days ago a&ox4. Pt was found by ems at pr 56% sp o2 on nc with unknown last time normal. Nh staff stated pt has been declining and AMS x5 days TECHNIQUE: Axial computed tomography images of the head/brain without intravenous contrast. COMPARISON: No relevant prior studies available. 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 Moderate whi te matter disease. No edema. Ventricles: Unremarkable. No ventriculomegaly. Bones/joints: Unremarkable. No acute fracture. Soft tissues: Unremarkable. Sinuses: Minimal air fluid level in the left maxillary sinus. Mastoid air cells: Unremarkable as visualized. No mastoid effusion. IMPRESSION: No intracranial hemorrhage.Please see discussion above. Thank you for allowing us to participate in the care of your patient. Dictated and Authenticated by: Gentry Webb MD 03/18/2017 12:25 AM Central Time ([place] & [place]) FINAL REPORT HEAD CT WITHOUT CONTRAST: Date: 03/17/17 COMPARISON: 10/12/16. HISTORY: Altered mental status, memory loss. FINDINGS: I agree with the preliminary report given by Dee. The imaged paranasal sinuses and mastoid air cells are well aerated. There is atherosclerotic calcifi cation of the cavernous carotid arteries. No displaced calvarial fracture. There is multifocal periventricular deep and subcortical white matter hypodensity suggesting small ve ssel disease/prior infarction, not significantly changed. No intracranial hemorrhage, midline shift, or mass effect. IMPRESSION: Stable head CT. No intracranial hemorrhage. If there is clinical concern for acute infarction, brain MRI advised. POS: [facility]
[2017-03-18 08:13] VITALS: TEMP 97.3
[2017-03-18] MEDS ORDERED: Famotidine/PF 20 mg/2ml Vial SLOW IVP SCH (09:00)
[2017-03-18] MEDS ORDERED: Piperacillin/Tazobactam 2.25 GM in Sodium Chloride 0.9% 100 ML IVPB SCH (09:00)
--- NOTE | 2017-03-18 09:50 | CON ---
DATE OF CONSULTATION: 03/18/2017 A 45 minutes critical care time. CONSULTING PHYSICIAN: Hospitalist group. REASON FOR CONSULTATION: Acute respiratory failure, acute renal failure and hypotension. HISTORY OF PRESENT ILLNESS: This patient is an 82-year-old male who previously was on hospice at a [facility]. He was found to be in bad shape by his family last night, transport was requested to [facility], he was found to be in severe renal failure with bad acidosis and an increased work of franco athing. He was thought to be also in septic shock and was placed on Levophed and dobutamine by the E R and Hospitalist team. The family did not revoke his DNR, but wants to try critical care interventi on at this time. I spoke to one of the daughters this morning and also reviewed all the records in his chart. The pat bradford put himself on hospice for congestive heart failure. The daughter states that if he had an infe ction that he wanted to have that treated. PAST MEDICAL HISTORY: 1. Congestive heart failure, systolic and diastolic. 2. Coronary artery disease. 3. Chronic renal insufficiency, previously stage 3. 4. Atrial fibrillation. 5. Hypertension. 6. Diabetes mellitus, type 2. PAST SURGICAL HISTORY: Knee surgery and left shoulder surgery. ALLERGIES: SULFA DRUGS. MEDICATIONS: Prior to admission, Imodium, lisinopril, morphine sulfate, Mucinex, omeprazole, prometh azine, miconazole, Aldactone, albuterol, Lor, allopurinol, Bumex, Dulcolax, gabapentin, hydrochlo rothiazide, terazosin. SOCIAL HISTORY: Lives in a assisted. FAMILY MEDICAL HISTORY: Remarkable for diabetes type 2. REVIEW OF SYSTEMS: Unobtainable due to the fact that the patient is obtunded. CURRENT MEDICATIONS: He is currently on a Levophed drip at 35 mcg per minute. He is also on a dobut amine drip at 5 mcg per kilogram per minute. He is also on a bicarbonate drip. PHYSICAL EXAMINATION: VITAL SIGNS: Temperature 97.4, pulse 120, blood pressure 103/46. GENERAL: He will open his eyes to deep stimulation, but will not interact. HEENT: He has significant conjunctival edema. Pupils react. Oropharynx dry. He is wearing a BiPAP mask. NECK: No JVD. LUNGS: Coarse breath sounds bilaterally. No dullness to percussion. CARDIAC: S1, S2, irregularly irregular, no murmur. ABDOMEN: Protuberant and edematous. EXTREMITIES: Edematous throughout. LABORATORY DATA: Sodium 122, potassium 6.3, chloride 78, CO2 14, BUN 188, creatinine 11, glucose 397 , phosphorus 13.6, pH 7.16, pCO2 of 39, pO2 of 248 and that was on BiPAP. White blood cell count 23, hematocrit 39, platelet count 237. X-RAY FINDINGS: Chest x-ray showed no significant mass, effusion or infiltrate. ASSESSMENT: 1. Chronic renal failure with development of uremia. I think his main issue is bad congestive heart failure and it is lead to progressive renal failure and he is now at the point where he has multiple organ failure and cannot sustain life. 2. Possible sepsis - he has elevated white blood cell count and of course he could have sepsis, but I think the renal failure is his main issue. 3. Acute respiratory failure secondary to metabolic acidosis. RECOMMENDATIONS: This type of intervention clearly seemed to be opposed to the patient's previous [facility] wishes. I think most of his issues are caused by congestive heart failure with development of renal failure. It sounds like he would not want to be on chronic hemodialysis. I would advocate sit ting down with the family and re-discussing these issues and try to re-enter a palliative care type priscilla tariq. I will go ahead and ask the Palliative Care Team to see the patient. I do not think there i s any hope for reasonable recovery with aggressive intervention, which seems to be totally against [facility] patient's previous wishes.
--- NOTE | 2017-03-18 16:58 | DS ---
DATE OF ADMISSION: 03/18/2017 DATE OF DISCHARGE: 03/18/2017 TIME OF : 0845. PRIMARY CARE PHYSICIAN: Cira Gallo M.D. CONSULTATIONS: 1. Pulmonary Critical Care. 2. Nephrology, Dr. Rob Plasencia. PROCEDURES PERFORMED: None. HISTORY OF PRESENT ILLNESS: Mr. Saunders was an 82-year-old gentleman admitted from the [facility] this morning with severe sepsis and hypotension. He had recently been on hospice and that was r evoked. He was still DNR/DNI, but was allowed to have pressors and fluids, so he was transferred to the ICU for resuscitation. He was seen by Pulmonary Critical Care in the morning of 03/18. HOSPITAL COURSE: The patient was admitted. Transferred from the ICU. Antibiotics and pressors were continued. The patient was seen by Pulmonary Critical Care and has not been in acute renal failure. Pulmonary asked palliative care to come see the patient and meet with the family to discuss the iss ues to reiterate a comfort care program. The patient went into agonal respirations and non-perfusing rhythm due to his DNR/DNI status. He was not coded. At 0845, the patient was in asystole and was pronounced . Family was contacted, remains were transferred to the [facility] while they decided on a home. DISCHARGE CONDITION: . Remains to be released to home when family decides.
--- NOTE | 2017-03-20 16:46 | EKG ---
Test Reason : AMS Blood Pressure : / mmHG Vent. Rate : 082 BPM Atrial Rate : 170 BPM P-R Int : 000 ms QRS Dur : 140 ms QT Int : 406 ms P-R-T Axes : 000 -78 076 degrees QTc Int : 474 ms Atrial fibrillation Left axis deviation Right bundle branch block Abnormal ECG Confirmed by SAMSON SANDOVAL ([id number]), advertising editor DMITRY [place] ([id number]) on 03/20/2017 4:45:59 PM Referred By: Confirmed By:SAMSON SANDOVAL
== END 2017-03-18 10:02 | disposition expired | DRG 871 ==
LOC: ERS 21:37 → CCU 03-18 01:00
PROVIDERS: ADMIT Internal Medicine; ATTEND Internal Medicine
PROC: 5A1D70Z Performance of Urinary Filtration, Intermittent, Less than 6 Hours Per Day (ICD-10-PCS; principal; 2017-03-18)
PROC: 5A09357 Assistance with Respiratory Ventilation, Less than 24 Consecutive Hours, Continuous Positive Airway Pressure (ICD-10-PCS; 2017-03-18)
PROC: 05HY33Z Insertion of Infusion Device into Upper Vein, Percutaneous Approach (ICD-10-PCS; 2017-03-18)
DX: A41.9 Sepsis, unspecified organism (principal); R65.21 Severe sepsis with septic shock; J96.00 Acute respiratory failure, unspecified whether with hypoxia or hypercapnia; N17.9 Acute kidney failure, unspecified; E11.22 Type 2 diabetes mellitus with diabetic chronic kidney disease; E11.65 Type 2 diabetes mellitus with hyperglycemia; E87.1 Hypo-osmolality and hyponatremia; I48.91 Unspecified atrial fibrillation; E86.0 Dehydration; K92.2 Gastrointestinal hemorrhage, unspecified; E87.2 Acidosis; I13.0 Hypertensive heart and chronic kidney disease with heart failure and stage 1 through stage 4 chronic kidney disease, or unspecified chronic kidney disease; I50.42 Chronic combined systolic (congestive) and diastolic (congestive) heart failure; M62.82 Rhabdomyolysis; Z66 Do not resuscitate; E87.5 Hyperkalemia; I25.10 Atherosclerotic heart disease of native coronary artery without angina pectoris; N18.3 Chronic kidney disease, stage 3 (moderate); E78.5 Hyperlipidemia, unspecified; Z79.899 Other long term (current) drug therapy; Z79.82 Long term (current) use of aspirin; Z79.4 Long term (current) use of insulin; Z95.5 Presence of coronary angioplasty implant and graft
CPT/HCPCS: 36415; 36416; 36556; 51702; 70450; 71045; 80053; 82274; 82550; 82553; 82805; 83605; 83735; 83880; 84100; 84484; 85025; 87040; 87077; 87086; 87186; 87340; 90935; 93005; 94640; 94660; 94760; 96361; 96365; 96366; 96368; 96375; 99292; C9113; G0257; J0692; J1250; J1720; J1815; J1956; J2543; J3370; J7050; J7070; J7611